=== PATIENT | male | born 1960 | race American Indian/Alaskan Native ===

== ENCOUNTER 2017-03-11 11:12 | Emergency (ER) | payer SELFPAY ==
[2017-03-11 15:20] LABS: Bilirubin,Urine NEG (Negative); Blood,Urine SM (Negative); Color,Urine Yellow (Yellow); Mucus,Urine FEW /HPF; Nitrite,Urine NEG (Negative)
[2017-03-11] MEDS ORDERED: XYLOCAINE 1% MPF 5 mL INFILTRATI ONE (20:05)
[2017-03-11] MEDS ORDERED: ROCEPHIN IM ONE (20:05)
[2017-03-11 20:15] VITALS: BP 150/90
--- NOTE | 2017-03-11 20:58 | Emergency Department Report ---
ED Male HPI - General Chief complaint: Urogenital-Male Stated complaint: PAIN WITH URINATION Time Seen by Provider: 03/11/17 19:41 Source: patient Mode of arrival: Ambulatory Limitations: No Limitations - History of Present Illness MD Complaint: dysuria -: Gradual, days(s) (3) Location: penis Radiation: none Severity: moderate Quality: burning Improves with: none Worsens with: urination other (itching generalized, which responded to Benadryl. ) - Related Data Sexually active: Yes (Had unprotected sex 2 weeks ago with a 6 months partner) Previous Rx's Medication Instructions Recorded Last Taken Type Cephalexin [Keflex] 500 mg PO Q6HR 10 Days capsule 03/11/17 Unknown Rx Doxycycline [Vibramycin CAP] 100 mg PO Q12HR 7 Days capsule 03/11/17 Unknown Rx Allergies Allergy/AdvReac Type Severity Reaction Status Date / Time No Known Allergies Allergy Unverified 03/11/17 14:21 ED Review of Systems ROS: Stated complaint: PAIN WITH URINATION Other details as noted in HPI Constitutional: denies: chills, fever Eyes: denies: eye pain, eye discharge, vision change ENT: denies: ear pain, throat pain Respiratory: denies: cough, shortness of breath, wheezing Cardiovascular: denies: chest pain, palpitations Endocrine: no symptoms reported Gastrointestinal: denies: abdominal pain, nausea, diarrhea Genitourinary: dysuria. denies: urgency, discharge Musculoskeletal: denies: back pain, joint swelling, arthralgia Skin: denies: rash, lesions Neurological: denies: headache, weakness, paresthesias Psychiatric: denies: anxiety, depression Hematological/Lymphatic: denies: easy bleeding, easy bruising ED Past Medical Hx - Past Medical History Previous Medical History?: No - Surgical History Past Surgical History?: No - Social History Smoking Status: Current Every Day Smoker Substance Use Type: Alcohol - Medications Home Medications: Home Medications Medication Instructions Recorded Confirmed Last Taken Type Cephalexin [Keflex] 500 mg PO Q6HR 10 Days capsule 03/11/17 Unknown Rx Doxycycline [Vibramycin CAP] 100 mg PO Q12HR 7 Days capsule 03/11/17 Unknown Rx ED Physical Exam - General Limitations: No Limitations General appearance: alert, in no apparent distress - Head Head exam: Present: atraumatic, normocephalic - Eye Eye exam: Present: normal appearance - ENT ENT exam: Present: mucous membranes moist - Neck Neck exam: Present: normal inspection - Respiratory Respiratory exam: Present: normal lung sounds bilaterally. Absent: respiratory distress - Cardiovascular Cardiovascular Exam: Present: regular rate, normal rhythm. Absent: systolic murmur, diastolic murmur, rubs, gallop - GI/Abdominal GI/Abdominal exam: Present: soft, normal bowel sounds - Rectal Rectal exam: Present: deferred - Extremities Exam Extremities exam: Present: normal inspection - Back Exam Back exam: Present: normal inspection - Neurological Exam Neurological exam: Present: alert, oriented X3 - Psychiatric Psychiatric exam: Present: normal affect, normal mood - Skin Skin exam: Present: warm, dry, intact, normal color. Absent: rash ED Course Vital Signs 03/11/17 03/11/17 14:15 20:14 Temperature 98.7 F Pulse Rate 86 91 H Respiratory 16 18 Rate Blood Pressure 145/100 Blood Pressure 150/90 [Right] O2 Sat by Pulse 100 97 Oximetry Critical care attestation.: If time is entered above; I have spent that time in minutes in the direct care of this critically ill patient, excluding procedure time. ED Disposition Clinical Impression: Possible exposure to STD UTI (urinary tract infection) Qualifiers: Urinary tract infection type: site unspecified Hematuria presence: without hematuria Qualified Code(s): N39.0 - Urinary tract infection, site not specified Disposition: - TO HOME OR SELFCARE Is pt being admited?: No Does the pt Need Aspirin: No Condition: Stable Instructions: Safe Sex (ED) Prescriptions: Cephalexin [Keflex] 500 mg PO Q6HR 10 Days capsule Doxycycline [Vibramycin CAP] 100 mg PO Q12HR 7 Days capsule Referrals: PRIMARY CARE, [Primary Care Provider] - 3-5 Days Time of Disposition: 20:58
== END 2017-03-11 21:15 | disposition home or self-care (01) ==
LOC: ED 11:12
DX: N39.0 Urinary tract infection, site not specified (principal); F17.200 Nicotine dependence, unspecified, uncomplicated
CPT/HCPCS: 81001; 96372; 99283; J0696

== ENCOUNTER 2020-07-20 15:46 | Inpatient (IN) | payer OTHER, SELFPAY ==
--- NOTE | 2020-07-20 19:18 | Event Note ---
ED Screening Note Date of service: 07/20/20 Time: 19:14 ED Screening Note: 59-year-old male patient with prior history of perirectal abscess requiring operative intervention presents emergency department with complaints of progressively worsening rectal pain/swelling/drainage and fecal incontinence for approximately 3 weeks. Patient is not currently on antibiotics. Tachycardic in triage. Although the rectum cannot properly be visualized in triage, foul-smelling purulent drainage is noted to be soaking through the patient's pants and onto the seat. General: Awake, appropriately interactive, no acute distress. Neck: Supple. Full range of motion intact. Cardiovascular: Normal peripheral perfusion. Pulmonary: No respiratory distress. Patient is speaking normally without use of accessory muscles. Skin: No apparent rashes or lesions. Neurological: No facial asymmetry. Speech is clear. Follows commands. Patient is alert and oriented. Musculoskeletal: Moves all four extremities spontaneously with normal range of motion. Psych: Cooperative. Appropriate mood and affect. Initial labs ordered; imaging deferred to additional ED providers following full history and comprehensive physical exam. I have greeted and performed a focused rapid initial assessment of this patient. A comprehensive ED assessment and evaluation of the patient, analysis of all test results, and completion of the medical decision-making process will be conducted by additional ED providers. This initial assessment/diagnostic orders/clinical plan/treatment(s) is/are subject to change based on patients health status, clinical progression and re-assessment. Further treatment and workup at subsequent clinical provider's discretion. Patient/guardian urged not to elope from the ED as their condition may be serious if not clinically assessed and managed.
[2020-07-20 19:44] LABS: Hematocrit 46.4 % (35.5-45.6); Hemoglobin 15.6 gm/dl (11.8-15.2); Mean Corpuscular HGB Conc 34 % (32-34); Mean Corpuscular Volume 90 fl (84-94); Platelet Count 262 K/mm3 (140-440); Red Blood Count 5.16 M/mm3 (3.65-5.03); Red Cell Distribution Width 13.6 % (13.2-15.2)
[2020-07-20 20:03] LABS: Alanine Aminotransferase 15 units/L (7-56); Albumin 3.9 g/dL (3.9-5); BUN/Creatinine Ratio 13; Blood Urea Nitrogen 14 mg/dL (9-20); Calcium 8.8 mg/dL (8.4-10.2); Hemolysis Index 61
[2020-07-20 20:26] LABS: Total Cells Counted 100
[2020-07-20 20:27] LABS: Band Neutrophils # (Manual) 0.9 K/mm3; Platelet Estimate Consistent w Auto; RBC Morphology Normal
[2020-07-20] MEDS ORDERED: metroNIDAZOLE/NS 500 MG/100 ML 500 MG/100 ML BAG IV ONE (21:42)
--- NOTE | 2020-07-20 21:49 | Emergency Department Report ---
- General Chief complaint: Skin/Abscess/Foreign Body Stated complaint: ,LEFT BUTTOCK,BLEEDING Time Seen by Provider: 07/20/20 21:31 Source: patient Mode of arrival: Ambulatory Limitations: No Limitations - History of Present Illness Initial comments: CC: buttock abscess HPI: This is a 59-year-old male with history of hemorrhoids and buttock abscess who presents with left buttock abscess. The swelling began 1 month ago. Pain and swelling worsened over time. He has 9 and 10 achy pain. Pain is worse with sitting down. No radiation of pain. Pain is constant. No history of diabetes. At the age of 15 patient required incision and drainage. Since that time he has not had recurrence of the abscess. MD complaint: abscess/boil -: Gradual, month(s) (1 month) Location: buttocks (Left buttock) Severity: severe Severity scale (0 -10): 9 Quality: aching Consistency: constant Improves with: none Worsens with: other (Seated position) Context: other (Buttock abscess required I&D age 15) Associated symptoms: fever Treatments Prior to Arrival: none - Related Data Previous Rx's Medication Instructions Recorded Last Taken Type DOXYCYCLINE Hyclate [Vibramycin 100 mg PO Q12HR 7 Days capsule 03/11/17 Unknown Rx CAP] cephALEXin [Keflex] 500 mg PO Q6HR 10 Days capsule 03/11/17 Unknown Rx Allergies Allergy/AdvReac Type Severity Reaction Status Date / Time No Known Allergies Allergy Verified 07/21/20 00:04 Abscess Boil HPI - HPI Chief Complaint: Skin/Abscess/Foreign Body Stated Complaint: ,LEFT BUTTOCK,BLEEDING Time Seen by Provider: 07/20/20 21:31 Home Medications: Previous Rx's Medication Instructions Recorded Last Taken Type DOXYCYCLINE Hyclate [Vibramycin 100 mg PO Q12HR 7 Days capsule 03/11/17 Unknown Rx CAP] cephALEXin [Keflex] 500 mg PO Q6HR 10 Days capsule 03/11/17 Unknown Rx Allergies/Adverse Reactions: Allergies Allergy/AdvReac Type Severity Reaction Status Date / Time No Known Allergies Allergy Verified 07/21/20 00:04 ED Review of Systems ROS: Stated complaint: ,LEFT BUTTOCK,BLEEDING Other details as noted in HPI Comment: All other systems reviewed and negative Constitutional: fever. denies: malaise Respiratory: denies: cough, shortness of breath Cardiovascular: denies: chest pain Gastrointestinal: denies: abdominal pain, nausea, vomiting Skin: lesions ED Past Medical Hx - Past Medical History Previous Medical History?: Yes Additional medical history: Hemorrhoids, buttock abscess - Surgical History Past Surgical History?: No - Family History Family history: hypertension - Social History Smoking Status: Current Every Day Smoker Substance Use Type: Alcohol - Medications Home Medications: Home Medications Medication Instructions Recorded Confirmed Last Taken Type DOXYCYCLINE Hyclate [Vibramycin 100 mg PO Q12HR 7 Days capsule 03/11/17 Unknown Rx CAP] cephALEXin [Keflex] 500 mg PO Q6HR 10 Days capsule 03/11/17 Unknown Rx ED Physical Exam - General Limitations: No Limitations General appearance: alert, in no apparent distress, other (Pleasant, nontoxic-appearing, talkative) - Head Head exam: Present: atraumatic, normocephalic - Eye Eye exam: Present: normal appearance - ENT ENT exam: Present: mucous membranes moist - Neck Neck exam: Present: normal inspection, full ROM - Respiratory Respiratory exam: Present: normal lung sounds bilaterally. Absent: respiratory distress, wheezes, rales, rhonchi - Cardiovascular Cardiovascular Exam: Present: normal rhythm, tachycardia. Absent: systolic murmur, diastolic murmur, rubs, gallop - GI/Abdominal GI/Abdominal exam: Present: soft, normal bowel sounds. Absent: distended, tenderness, guarding, rebound - Rectal Rectal exam: Present: deferred - Back Exam Back exam: Present: normal inspection - Neurological Exam Neurological exam: Present: alert, oriented X3 - Psychiatric Psychiatric exam: Present: normal affect, normal mood - Skin Skin exam: Present: rash, other (Left buttock: Induration fluctuance redness palpated observed along the medial portion of the left buttock just adjacent to the anus, no purulence observed) ED Course Vital Signs 07/20/20 07/21/20 16:23 00:15 Temperature 98.7 F Pulse Rate 122 H Respiratory 18 20 Rate Blood Pressure 144/73 [Right] O2 Sat by Pulse 100 Oximetry ED Medical Decision Making - Lab Data Result diagrams: 07/20/20 19:26 07/20/20 19:26 Laboratory Results - last 24 hr 07/20/20 07/20/20 19:26 19:26 WBC 21.9 H RBC 5.16 H Hgb 15.6 H Hct 46.4 H MCV 90 MCH 30 MCHC 34 RDW 13.6 Plt Count 262 Add Manual Diff Complete Total Counted 100 Seg Neuts % (Manual) 84.0 H Band Neutrophils % 4.0 Lymphocytes % (Manual) 8.0 L Monocytes % (Manual) 4.0 Nucleated RBC % Not Reportable Seg Neutrophils # Man 18.4 H Band Neutrophils # 0.9 Lymphocytes # (Manual) 1.8 Abs React Lymphs (Man) 0.0 Monocytes # (Manual) 0.9 H Eosinophils # (Manual) 0.0 Basophils # (Manual) 0.0 Metamyelocytes # 0.0 Myelocytes # 0.0 Promyelocytes # 0.0 Blast Cells # 0.0 WBC Morphology Not Reportable Hypersegmented Neuts Not Reportable Hyposegmented Neuts Not Reportable Hypogranular Neuts Not Reportable Smudge Cells Not Reportable Toxic Granulation Not Reportable Toxic Vacuolation Not Reportable Dohle Bodies Not Reportable Pelger-Huet Anomaly Not Reportable Steve Rods Not Reportable Platelet Estimate Consistent w auto Clumped Platelets Not Reportable Plt Clumps, EDTA Not Reportable Large Platelets Not Reportable Giant Platelets Not Reportable Platelet Satelliting Not Reportable Plt Morphology Comment Not Reportable RBC Morphology Normal Dimorphic RBCs Not Reportable Polychromasia Not Reportable Hypochromasia Not Reportable Poikilocytosis Not Reportable Anisocytosis Not Reportable Microcytosis Not Reportable Macrocytosis Not Reportable Spherocytes Not Reportable Pappenheimer Bodies Not Reportable Sickle Cells Not Reportable Target Cells Not Reportable Tear Drop Cells Not Reportable Ovalocytes Not Reportable Helmet Cells Not Reportable Rueda-[place] Bodies Not Reportable [place] Rings Not Reportable [place] Cells Not Reportable Bite Cells Not Reportable Crenated Cell Not Reportable Elliptocytes Not Reportable Acanthocytes (Spur) Not Reportable Rouleaux Not Reportable Hemoglobin C Crystals Not Reportable Schistocytes Not Reportable Malaria parasites Not Reportable Yared Bodies Not Reportable Hem Pathologist Commnt No Sodium 132 L Potassium 4.1 Chloride 89.5 L Carbon Dioxide 26 Anion Gap 21 BUN 14 Creatinine 1.1 Estimated GFR > 60 BUN/Creatinine Ratio 13 Glucose 107 H Calcium 8.8 Total Bilirubin 1.40 H AST 27 ALT 15 Alkaline Phosphatase 81 Total Protein 7.0 Albumin 3.9 Albumin/Globulin Ratio 1.3 - Radiology Data Radiology results: report reviewed Patient Name: ERICKA HORTON Gender: Male Date of : 1960 Referring Provider: KIM HOFFMAN Organization: [facility] Accession Number: [id number] Requested Date: July 20, 2020 23:15 Report Status: Final Requested Procedure: 1 Procedure Description: CT pelvis w con Modality: CT Findings Reporting MD: Mariel Florez Dictation Time: July 20, 2020 22:53 Keyboard Instrument Tuner: Not available Roll Tension Tester Date: CT pelvis w con INDICATION / CLINICAL INFORMATION: LEFT buttock abscess. TECHNIQUE: Axial CT imaging of pelvis was obtained with IV contrast. Coronal and sagittal reformatted imaging obtained and reviewed. All CT scans at this location are performed using CT dose reduction for ALARA by means of automated exposure control. COMPARISON: None available. FINDINGS: CT pelvis with contrast was obtained. There is extensive inflammatory change throughout the soft tissues of the left medial buttock region adjacent to the rectum. There is large area of inflammatory change measuring approximately 14 x 9 cm. Within this area of inflammatory change, there are multiple fluid collections consistent with abscesses. There are at least 2 abscesses measuring 4-5 cm in diameter. There are smaller similar fluid collections seen in this same area also representing abscesses. Gas is present within the abscesses as well as smaller scattered bubbles of gas throughout the inflamed tissue. The largest abscess tracks anteriorly through the left ischio rectal fossa in the perineum on the left, medial to the left internal obturator muscle and adjacent to the prostate and. This particular abscess measures approximately 5 x 1.5 cm. The remainder of the pelvic CT is unremarkable. GI tract is normal. Prostate gland is of normal size and appearance. Visualized osseous structures are normal. . IMPRESSION: 1. Large area of inflammatory change within the soft tissues of the left medial buttock region. Within the area of inflammatory change there are multiple abscesses. The largest abscess tracks anteriorly through the peritoneum and left ischio rectal fossa and just medial to the left internal obturator muscle. Scattered bubbles of gas are seen throughout the area of inflammatory change. Signer Name: Mariel Florez MD Signed: 07/20/2020 10:53 PM Workstation Name: [id number] - Medical Decision Making Deep extensive perianal buttock abscess: Upon arrival patient received ciprofl oxacin and Levaquin. Patient did have elevated white count without significant fever. He does not appear toxic. Dr. Quevedo recommended NPO status, IV abx and hospitalist admission Dr. Bull will admit Critical care attestation.: If time is entered above; I have spent that time in minutes in the direct care of this critically ill patient, excluding procedure time. ED Disposition Clinical Impression: Left buttock abscess Disposition: OP ADMIT IP TO THIS HOSP Is pt being admited?: Yes Does the pt Need Aspirin: No Condition: Stable
[2020-07-20] MEDS ORDERED: ONDANSETRON 4 MG/2 ML INJ IV ONE (21:50)
[2020-07-20] MEDS ORDERED: MORPHINE 4 MG/1 ML INJ IV ONE (21:50)
--- NOTE | 2020-07-20 23:58 | Cat Scan Report ---
CT pelvis w con INDICATION / CLINICAL INFORMATION: LEFT buttock abscess. TECHNIQUE: Axial CT imaging of pelvis was obtained with IV contrast. Coronal and sagittal reformatted imaging ob tained and reviewed. All CT scans at this location are performed using CT dose reduction for ALARA b y means of automated exposure control. COMPARISON: None available. FINDINGS: CT pelvis with contrast was obtained. There is extensive inflammatory change throughout the soft tissues of the left medial buttock region adjacent to the rectum. There is large area of inflammatory change measuring approximately 14 x 9 cm. Within this area of inflammatory change, there are multiple fluid collections consistent with absces ses. There are at least 2 abscesses measuring 4-5 cm in diameter. There are smaller similar fluid col lections seen in this same area also representing abscesses. Gas is present within the abscesses as w ell as smaller scattered bubbles of gas throughout the inflamed tissue. The largest abscess tracks an teriorly through the left ischio rectal fossa in the perineum on the left, medial to the left interna l obturator muscle and adjacent to the prostate and. This particular abscess measures approximately 5 x 1.5 cm. The remainder of the pelvic CT is unremarkable. GI tract is normal. Prostate gland is of normal size and appearance. Visualized osseous structures are normal. . IMPRESSION: 1. Large area of inflammatory change within the soft tissues of the left medial buttock region. Withi n the area of inflammatory change there are multiple abscesses. The largest abscess tracks anteriorly through the peritoneum and left ischio rectal fossa and just medial to the left internal obturator m uscle. Scattered bubbles of gas are seen throughout the area of inflammatory change. Signer Name: Mariel Florez MD Signed: 07/20/2020 11:53 PM Workstation Name: [id number]
[2020-07-21] MEDS ORDERED: MORPHINE 4 MG/1 ML INJ ONE (00:04)
[2020-07-21] MEDS ORDERED: ONDANSETRON 4 MG/2 ML INJ ONE ×2 (00:04→14:16)
--- NOTE | 2020-07-21 02:22 | History and Physical Report ---
History of Present Illness Date of examination: 07/21/20 Date of admission: 07/21/20 01:29 Chief complaint: rectal pain History of present illness: HPI: This is a 59-year-old male with history of hemorrhoids and buttock abscess who presents with left buttock abscess. The swelling began 1 month ago. Pain and swelling worsened over time. He has 9 and 10 achy pain. Pain is worse with sitting down. No radiation of pain. Pain is constant. ED work-up showed sodium 132, potassium 4.1, creatinine 1.1, serum glucose 107, WBC 21.9, hemoglobin 15.4, platelets 326. CT of the pelvis showed a large area of inflammation within the soft tissue of the left medial buttocks region and also showed a large abscess tracks anteriorly through the perineum and left ischio rectal fossa. There is also scattered bubbles of gas seen throughout the area of the inflammatory change. Patient seen in the ED at bedside patient reports rectal pain 6/10 on a pain scale of 0-10. General surgeon consulted. Patient is n.p.o. I reviewed the lab medication record and vital signs. WBC elevated patient started on IV antibiotics. blood culture ordered. Past History Past Surgical History: No surgical history Social history: smoking Family history: no significant family history Medications and Allergies Allergies Allergy/AdvReac Type Severity Reaction Status Date / Time No Known Allergies Allergy Verified 07/21/20 00:04 Home Medications Medication Instructions Recorded Confirmed Last Taken Type DOXYCYCLINE Hyclate [Vibramycin 100 mg PO Q12HR 7 Days capsule 03/11/17 Unknown Rx CAP] cephALEXin [Keflex] 500 mg PO Q6HR 10 Days capsule 03/11/17 Unknown Rx Review of Systems Constitutional: malaise Ears, nose, mouth and throat: no epistaxis, no bleeding gums Cardiovascular: no dyspnea on exertion Respiratory: no congestion, no wheezing Gastrointestinal: no melena Genitourinary Male: other (rectal abscess/pain) Exam - Constitutional Vitals: Temp Pulse Resp BP Pulse Ox 98.7 F 122 H 20 144/73 99 07/20/20 16:23 07/20/20 16:23 07/21/20 01:53 07/20/20 16:23 07/21/20 01:53 General appearance: Present: mild distress, obese - EENT Eyes: Present: PERRL ENT: hearing intact, clear oral mucosa - Neck Neck: Present: supple, normal ROM - Respiratory Respiratory effort: normal Respiratory: bilateral: CTA - Cardiovascular Heart Sounds: Present: S1 & S2. Absent: rub, click - Extremities Extremities: pulses symmetrical, No edema Peripheral Pulses: within normal limits - Abdominal General gastrointestinal: Present: soft, non-tender, non-distended, normal bowel sounds Male genitourinary: Present: normal - Integumentary Integumentary: Present: clear, warm, dry - Musculoskeletal Musculoskeletal: gait normal, strength equal bilaterally - Psychiatric Psychiatric: appropriate mood/affect, intact judgment & insight, cooperative - Neurologic Neurologic: CNII-XII intact, moves all extremities - Allied Health Allied health notes reviewed: nursing Results - Labs CBC & Chem 7: 07/20/20 19:26 07/20/20 19:26 Labs: Abnormal lab results 07/20/20 07/20/20 Range/Units 19:26 19:26 WBC 21.9 H (4.5-11.0) K/mm3 RBC 5.16 H (3.65-5.03) M/mm3 Hgb 15.6 H (11.8-15.2) gm/dl Hct 46.4 H (35.5-45.6) % Seg Neuts % (Manual) 84.0 H (40.0-70.0) % Lymphocytes % (Manual) 8.0 L (13.4-35.0) % Seg Neutrophils # Man 18.4 H (1.8-7.7) K/mm3 Monocytes # (Manual) 0.9 H (0.0-0.8) K/mm3 Sodium 132 L (137-145) mmol/L Chloride 89.5 L (98-107) mmol/L Glucose 107 H (75-100) mg/dL Total Bilirubin 1.40 H (0.1-1.2) mg/dL Assessment and Plan - Patient Problems (1) Left buttock abscess Current Visit: Yes Status: Acute Plan to address problem: General surgeon consulted Patient is n.p.o. Continue IV antibiotic. 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 Blood culture follow-up with results (4) Full code status Current Visit: Yes Status: Acute Plan to address problem: Patient is full code (5) DVT prophylaxis Current Visit: Yes Status: Acute Plan to address problem: SCD. Will hold anticoagulant for now due to possible surgery.
[2020-07-21] MEDS ORDERED: SENNOSIDES 8.6 MG TAB PO PRN (03:10)
[2020-07-21] MEDS ORDERED: MAGNESIUM HYDROXIDE (MOM) ORAL LIQD UDC PO PRN (03:10)
[2020-07-21] MEDS ORDERED: ACETAMINOPHEN 325 MG TAB PO PRN (03:10)
[2020-07-21] MEDS ORDERED: ONDANSETRON 4 MG/2 ML INJ IV PRN ×2 (03:10→16:30)
[2020-07-21] MEDS ORDERED: ALUM-MAG HYDROXIDE-SIMETHICONE 200-200-20MG/5ML ORAL LIQD 30 ML PO PRN (03:10)
[2020-07-21] MEDS: metroNIDAZOLE/NS 500 MG/100 ML 500 MG/100 ML BAG IV SCH ×3 (08:11→23:19)
--- NOTE | 2020-07-21 10:06 | Progress Note ---
Assessment and Plan Assessment and plan: -- Left buttock abscess Current Visit: Yes Status: Acute General surgeon consulted Patient is n.p.o status for possible I&D Continue IV antibiotic Levaquin and Flagyl --Sepsis secondary to left buttock abscess ; Current Visit: Yes Status: Acute Leukocytosis, tachycardia, Left buttock abscess Continue n.p.o., IV fluids, IV antibiotics Follow surgery evaluation recommendations Possible I&D --Ongoing tobacco abuse Current Visit: Yes Status: Acute . Smoking cessation counseling Nicotine patch as needed --Leukocytosis Current Visit: Yes Status: Acute Secondary to rectal abscess Continue antibiotic therapy Monitor WBC. Blood culture follow-up with results --Obesity; BMI 34.9 Current Visit: Yes Status: Acute Advised the patient diet modification Exercise as tolerated and weight reduction When medically stable --Full code status Current Visit: Yes Status: Acute Patient is full code --DVT prophylaxis Current Visit: Yes Status: Acute SCD. While resting Increase ambulation upon discharge Hold anticoagulants pending procedure We will closely monitor the patient and adjust management as needed Plan of care reviewed with the patient and his nurse Consults and recommendations noted and appreciated. Extended and advance care, total time spent 35 minutes History Interval history: I have seen and examined the patient at the bedside this morning Patient's chart and medications reviewed Patient was admitted with buttock rectal abscess/ On antibiotics n.p.o. status pending surgical evaluation Patient complains of some pain in the buttocks Vital signs noted Hospitalist Physical - Constitutional Vitals: Temp Pulse Resp BP Pulse Ox 98.6 F 112 H 20 134/69 98 07/21/20 02:34 07/21/20 02:34 07/21/20 02:34 07/21/20 02:34 07/21/20 02:34 General appearance: Present: mild distress, well-nourished, obese - EENT Eyes: Present: PERRL, EOM intact - Neck Neck: Present: supple, normal ROM - Respiratory Respiratory effort: normal Respiratory: bilateral: diminished, negative: rales, rhonchi, wheezing - Cardiovascular Rhythm: regular Heart Sounds: Present: S1 & S2 - Extremities Extremities: no ischemia, No edema - Abdominal General gastrointestinal: soft, non-tender, non-distended, normal bowel sounds - Integumentary Integumentary: Present: clear, warm - Psychiatric Psychiatric: appropriate mood/affect, cooperative - Neurologic Neurologic: CNII-XII intact, moves all extremities Results - Labs CBC & Chem 7: 07/20/20 19:26 07/20/20 19:26 Labs: Laboratory Last Values WBC 21.9 K/mm3 (4.5-11.0) H 07/20/20 19:26 RBC 5.16 M/mm3 (3.65-5.03) H 07/20/20 19:26 Hgb 15.6 gm/dl (11.8-15.2) H 07/20/20 19:26 Hct 46.4 % (35.5-45.6) H 07/20/20 19:26 MCV 90 fl (84-94) 07/20/20 19: MCH 30 pg (28-32) 07/20/20 19: MCHC 34 % (32-34) 07/20/20 19: RDW 13.6 % (13.2-15.2) 07/20/20 19: Plt Count 262 K/mm3 (140-440) 07/20/20 19:26 Add Manual Diff Complete 07/20/20 19:26 Total Counted 100 07/20/20 19:26 Seg Neuts % (Manual) 84.0 % (40.0-70.0) H 07/20/20 19: Band Neutrophils % 4.0 % 07/20/20 19:26 Lymphocytes % (Manual) 8.0 % (13.4-35.0) L 07/20/20 19:26 Monocytes % (Manual) 4.0 % (0.0-7.3) 07/20/20 19:26 Nucleated RBC % Not Reportable 07/20/20 19:26 Seg Neutrophils # Man 18.4 K/mm3 (1.8-7.7) H 07/20/20 19:26 Band Neutrophils # 0.9 K/mm3 07/20/20 19:26 Lymphocytes # (Manual) 1.8 K/mm3 (1.2-5.4) 07/20/20 19:26 Abs React Lymphs (Man) 0.0 K/mm3 07/20/20 19:26 Monocytes # (Manual) 0.9 K/mm3 (0.0-0.8) H 07/20/20 19:26 Eosinophils # (Manual) 0.0 K/mm3 (0.0-0.4) 07/20/20 19:26 Basophils # (Manual) 0.0 K/mm3 (0.0-0.1) 07/20/20 19:26 Metamyelocytes # 0.0 K/mm3 07/20/20 19:26 Myelocytes # 0.0 K/mm3 07/20/20 19:26 Promyelocytes # 0.0 K/mm3 07/20/20 19:26 Blast Cells # 0.0 K/mm3 07/20/20 19:26 WBC Morphology Not Reportable 07/20/20 19:26 Hypersegmented Neuts Not Reportable 07/20/20 19:26 Hyposegmented Neuts Not Reportable 07/20/20 19:26 Hypogranular Neuts Not Reportable 07/20/20 19:26 Smudge Cells Not Reportable 07/20/20 19:26 Toxic Granulation Not Reportable 07/20/20 19:26 Toxic Vacuolation Not Reportable 07/20/20 19:26 Dohle Bodies Not Reportable 07/20/20 19:26 Pelger-Huet Anomaly Not Reportable 07/20/20 19:26 Steve Rods Not Reportable 07/20/20 19:26 Platelet Estimate Consistent w auto 07/20/20 19:26 Clumped Platelets Not Reportable 07/20/20 19:26 Plt Clumps, EDTA Not Reportable 07/20/20 19:26 Large Platelets Not Reportable 07/20/20 19:26 Giant Platelets Not Reportable 07/20/20 19:26 Platelet Satelliting Not Reportable 07/20/20 19:26 Plt Morphology Comment Not Reportable 07/20/20 19:26 RBC Morphology Normal 07/20/20 19:26 Dimorphic RBCs Not Reportable 07/20/20 19:26 Polychromasia Not Reportable 07/20/20 19:26 Hypochromasia Not Reportable 07/20/20 19:26 Poikilocytosis Not Reportable 07/20/20 19:26 Anisocytosis Not Reportable 07/20/20 19:26 Microcytosis Not Reportable 07/20/20 19:26 Macrocytosis Not Reportable 07/20/20 19:26 Spherocytes Not Reportable 07/20/20 19:26 Pappenheimer Bodies Not Reportable 07/20/20 19:26 Sickle Cells Not Reportable 07/20/20 19:26 Target Cells Not Reportable 07/20/20 19:26 Tear Drop Cells Not Reportable 07/20/20 19:26 Ovalocytes Not Reportable 07/20/20 19:26 Helmet Cells Not Reportable 07/20/20 19:26 Rueda-Holcomb Bodies Not Reportable 07/20/20 19:26 [place] Rings Not Reportable 07/20/20 19:26 Roscoe Cells Not Reportable 07/20/20 19:26 Bite Cells Not Reportable 07/20/20 19:26 Crenated Cell Not Reportable 07/20/20 19:26 Elliptocytes Not Reportable 07/20/20 19:26 Acanthocytes (Spur) Not Reportable 07/20/20 19:26 Rouleaux Not Reportable 07/20/20 19:26 Hemoglobin C Crystals Not Reportable 07/20/20 19:26 Schistocytes Not Reportable 07/20/20 19:26 Malaria parasites Not Reportable 07/20/20 19:26 Yared Bodies Not Reportable 07/20/20 19:26 Hem Pathologist Commnt No 07/20/20 19:26 Sodium 132 mmol/L (137-145) L 07/20/20 19:26 Potassium 4.1 mmol/L (3.6-5.0) 07/20/20 19:26 Chloride 89.5 mmol/L (98-107) L 07/20/20 19:26 Carbon Dioxide 26 mmol/L (22-30) 07/20/20 19:26 Anion Gap 21 mmol/L 07/20/20 19:26 BUN 14 mg/dL (9-20) 07/20/20 19:26 Creatinine 1.1 mg/dL (0.8-1.3) 07/20/20 19:26 Estimated GFR > 60 ml/min 07/20/20 19:26 BUN/Creatinine Ratio 13 % 07/20/20 19:26 Glucose 107 mg/dL (75-100) H 07/20/20 19:26 Hemoglobin A1c 5.5 % (4-6) 07/21/20 07:52 Calcium 8.8 mg/dL (8.4-10.2) 07/20/20 19:26 Total Bilirubin 1.40 mg/dL (0.1-1.2) H 07/20/20 19:26 AST 27 units/L (5-40) 07/20/20 19:26 ALT 15 units/L (7-56) 07/20/20 19:26 Alkaline Phosphatase 81 units/L (35-129) 07/20/20 19:26 Total Protein 7.0 g/dL (6.3-8.2) 07/20/20 19:26 Albumin 3.9 g/dL (3.9-5) 07/20/20 19:26 Albumin/Globulin Ratio 1.3 % 07/20/20 19:26 Microbiology: Microbiology 07/20/20 20:57 Peripheral/Venous Blood Culture - Preliminary Culture in Progress 07/20/20 20:57 Peripheral/Venous Blood Culture - Preliminary Culture in Progress Chavez/IV: Voiding Method Toilet Active Medications - Current Medications Current Medications: Generic Name Dose Route Start Last Admin Trade Name Freq PRN Reason Stop Dose Admin Acetaminophen 650 mg 07/21/20 03:10 Acetaminophen 325 Mg Tab PO Q4H PRN Pain MILD(1-3)/Fever >100.5/REYEZ Al Hydrox/Mg Hydrox/Simethicone 30 ml 07/21/20 03:10 Alum-Mag Hydroxide-Simethicone [phone]/5ml Oral Liqd 30 Ml PO Q4H PRN Indigestion Hydralazine HCl 5 mg 07/21/20 07:00 Hydralazine 20 Mg/1 Ml Inj IV Q4HR PRN Hypertension Levofloxacin/Dextrose 750 mg in 150 mls @ 100 mls/hr 07/21/20 22:00 Levaquin 750mg/150ml IV Q24H EDITH Protocol Metronidazole 500 mg in 100 mls @ 100 mls/hr 07/21/20 08:00 07/21/20 08:11 Flagyl 500 Mg/100 Ml IV 100 mls/hr Q8H EDITH Administration Protocol Magnesium Hydroxide 30 ml 07/21/20 03:10 Magnesium Hydroxide (Mom) Oral Liqd Udc PO Q4H PRN Constipation Ondansetron HCl 4 mg 07/21/20 03:10 Ondansetron 4 Mg/2 Ml Inj IV Q8H PRN Nausea And Vomiting Senna 8.6 mg 07/21/20 03:10 Sennosides 8.6 Mg Tab PO Q12HR PRN Constipation Sodium Chloride 10 ml 07/21/20 03:10 Sodium Chloride 0.9% 10 Ml Flush Syringe IV PRN PRN LINE FLUSH
--- NOTE | 2020-07-21 12:09 | Consultation ---
History of Present Illness - Reason for Consult Consult date: 07/21/20 - History of Present Illness 59-year-old man past medical history hemorrhoids, buttock abscess presents with new occurrence of left buttock abscess. He symptoms started approximately 1 month prior to admission, however they have worsened over time. Afebrile with a white count of 22. Blood cultures pending. Imaging personally reviewed: Pelvis CT: Multiple abscesses in the left medial buttock region. 1 of which tracks through the peritoneum and left ischio rectal fossa Review of Systems: Bold if positive, otherwise negative General: fevers, chills, rigors HEENT: visual disturbance, diplopia, eye pain Respiratory: cough, sputum, hemoptysis, shortness of breath Cardiovascular: chest pain, syncope Gastrointestinal: nausea, vomiting, diarrhea, abdominal pain Genitourinary: dysuria, hematuria, flank pain Musculoskeletal: neck pain, back pain, joint pain, edema Neurologic: headaches, seizures Hematologic: easy bruising or bleeding Endocrine: night sweats, acute weight loss Skin: rash, jaundice, redness Psychiatric: suicidal, homicidal ideation Past History Past Surgical History: No surgical history Social history: smoking Family history: no significant family history Medications and Allergies Allergies Allergy/AdvReac Type Severity Reaction Status Date / Time No Known Allergies Allergy Verified 07/21/20 00:04 Home Medications Medication Instructions Recorded Confirmed Last Taken Type No Known Home Medications [No 07/21/20 07/21/20 Unknown History Reported Home Medications] Active Meds: Active Medications Acetaminophen (Acetaminophen 325 Mg Tab) 650 mg PO Q4H PRN PRN Reason: Pain MILD(1-3)/Fever >100.5/REYEZ Al Hydrox/Mg Hydrox/Simethicone (Alum-Mag Hydroxide-Simethicone [phone]/5ml Oral Liqd 30 Ml) 30 ml PO Q4H PRN PRN Reason: Indigestion Hydralazine HCl (Hydralazine 20 Mg/1 Ml Inj) 5 mg IV Q4HR PRN PRN Reason: Hypertension Levofloxacin/Dextrose (Levaquin 750mg/150ml) 750 mg in 150 mls @ 100 mls/hr IV Q24H EDITH; Protocol Metronidazole (Flagyl 500 Mg/100 Ml) 500 mg in 100 mls @ 100 mls/hr IV Q8H EDITH; Protocol Last Admin: 07/21/20 08:11 Dose: 100 mls/hr Documented by: Magnesium Hydroxide (Magnesium Hydroxide (Mom) Oral Liqd Udc) 30 ml PO Q4H PRN PRN Reason: Constipation Ondansetron HCl (Ondansetron 4 Mg/2 Ml Inj) 4 mg IV Q8H PRN PRN Reason: Nausea And Vomiting Senna (Sennosides 8.6 Mg Tab) 8.6 mg PO Q12HR PRN PRN Reason: Constipation Sodium Chloride (Sodium Chloride 0.9% 10 Ml Flush Syringe) 10 ml IV PRN PRN PRN Reason: LINE FLUSH Physical Examination - Physical Exam Narrative exam: Physical Exam: Constitutional: Alert, cooperative. No acute distress Head, Ears, Nose: Normocephalic, atraumatic. External ears, nose normal Eyes: Conjunctivae/corneas clear. No icterus. No ptosis. Neck: Supple, no meningeal signs Oral: dentition fair, no thrush Cardiovascular: S1, S2 normal. Respiratory: Good air entry, clear to auscultation bilaterally GI: Soft, non-tender; bowel sounds normal. No peritoneal signs. Musculoskeletal: left buttock pain, swelling, redness Skin: No rash or abscess Hem/Lymphatic: No palpable cervical or supraclavicular nodes. No lymphangitis Psych: Mood ok. Affect normal Neurological: Awake, alert, oriented. No gross abnormality - Constitutional Vitals: Vital Signs Temp Pulse Resp BP Pulse Ox 98.6 F 112 H 20 134/69 98 07/21/20 02:34 07/21/20 02:34 07/21/20 02:34 07/21/20 02:34 07/21/20 02:34 Temperature -Last 24 Hours Temperature 98.6 F Temperature 98.7 F Results - Labs CBC & Chem 7: 07/20/20 19:26 07/20/20 19:26 Labs: Abnormal lab results 07/20/20 07/20/20 Range/Units 19:26 19:26 WBC 21.9 H (4.5-11.0) K/mm3 RBC 5.16 H (3.65-5.03) M/mm3 Hgb 15.6 H (11.8-15.2) gm/dl Hct 46.4 H (35.5-45.6) % Seg Neuts % (Manual) 84.0 H (40.0-70.0) % Lymphocytes % (Manual) 8.0 L (13.4-35.0) % Seg Neutrophils # Man 18.4 H (1.8-7.7) K/mm3 Monocytes # (Manual) 0.9 H (0.0-0.8) K/mm3 Sodium 132 L (137-145) mmol/L Chloride 89.5 L (98-107) mmol/L Glucose 107 H (75-100) mg/dL Total Bilirubin 1.40 H (0.1-1.2) mg/dL Assessment and Plan Cultures: Blood culture no growth so far. A/P: 59-year-old man past medical history hemorrhoids, buttock abscess presents with extensive buttock abscess #L buttock abscess: with deep tracking, will likely need surgical I&D #Elevated bilirubin: consider RUQ USS #Obesity Recs: -Stopped Levaquin -Start ceftriaxone/Flagyl -Obtain cultures from debridement. -RUQ USS Thank you for the consult, we will continue to follow. MD [facility] ([facility] O: [phone] F: [phone]
--- NOTE | 2020-07-21 12:43 | Consultation ---
History of Present Illness Consult date: 07/21/20 Chief complaint: buttock pain - History of present illness History of present illness: 59 yo M with hx of hemorrhoids who presented to ER with worsening swelling and pain of the left buttock that started 3-4 weeks ago. Patient states it started off as swelling and then he started noticing drainage of pus and feces from the area. He is unsure if the drainage was from the rectum. He states he has never had anything like this before. Pain is achy, 9-10 in severity. Pain medications helps with the pain. He admits to subjective fevers. Past History Past Medical History: No medical history Past Surgical History: No surgical history Social history: smoking, alcohol abuse (3-4 beers a month) Family history: no significant family history Medications and Allergies Allergies Allergy/AdvReac Type Severity Reaction Status Date / Time No Known Allergies Allergy Verified 07/21/20 00:04 Home Medications Medication Instructions Recorded Confirmed Last Taken Type No Known Home Medications [No 07/21/20 07/21/20 Unknown History Reported Home Medications] Active Meds: Active Medications Acetaminophen (Acetaminophen 325 Mg Tab) 650 mg PO Q4H PRN PRN Reason: Pain MILD(1-3)/Fever >100.5/REYEZ Al Hydrox/Mg Hydrox/Simethicone (Alum-Mag Hydroxide-Simethicone [phone]/5ml Oral Liqd 30 Ml) 30 ml PO Q4H PRN PRN Reason: Indigestion Hydralazine HCl (Hydralazine 20 Mg/1 Ml Inj) 5 mg IV Q4HR PRN PRN Reason: Hypertension Metronidazole (Flagyl 500 Mg/100 Ml) 500 mg in 100 mls @ 100 mls/hr IV Q8H EDITH; Protocol Last Admin: 07/21/20 08:11 Dose: 100 mls/hr Documented by: Ceftriaxone Sodium (Rocephin/Ns 2 Gm/100 Ml) 2 gm in 100 mls @ 200 mls/hr IV Q24HR EDITH; Protocol Magnesium Hydroxide (Magnesium Hydroxide (Mom) Oral Liqd Udc) 30 ml PO Q4H PRN PRN Reason: Constipation Ondansetron HCl (Ondansetron 4 Mg/2 Ml Inj) 4 mg IV Q8H PRN PRN Reason: Nausea And Vomiting Senna (Sennosides 8.6 Mg Tab) 8.6 mg PO Q12HR PRN PRN Reason: Constipation Sodium Chloride (Sodium Chloride 0.9% 10 Ml Flush Syringe) 10 ml IV PRN PRN PRN Reason: LINE FLUSH Review of Systems All systems: negative (10 point ROS performed and negative except for that listed in HPI) Exam Vital Signs Temp Pulse Resp BP Pulse Ox 98.7 F 122 H 18 144/73 100 07/20/20 16:23 07/20/20 16:23 07/20/20 16:23 07/20/20 16:23 07/20/20 16:23 Narrative exam: Gen.: Awake, alert, oriented x3. No apparent distress ENT: Trachea midline. No lymphadenopathy. No scleral icterus or conjunctival pallor CV: S1, S2 present Respiratory: No audible wheezes Extremities: No clubbing, cyanosis, edema Gluteal: Large indurated, fluctuance, erythematous left inner buttock. NO drainage or wounds. Results - Labs 07/20/20 19:26 07/20/20 19:26 Abnormal lab results 07/20/20 07/20/20 Range/Units 19:26 19:26 WBC 21.9 H (4.5-11.0) K/mm3 RBC 5.16 H (3.65-5.03) M/mm3 Hgb 15.6 H (11.8-15.2) gm/dl Hct 46.4 H (35.5-45.6) % Seg Neuts % (Manual) 84.0 H (40.0-70.0) % Lymphocytes % (Manual) 8.0 L (13.4-35.0) % Seg Neutrophils # Man 18.4 H (1.8-7.7) K/mm3 Monocytes # (Manual) 0.9 H (0.0-0.8) K/mm3 Sodium 132 L (137-145) mmol/L Chloride 89.5 L (98-107) mmol/L Glucose 107 H (75-100) mg/dL Total Bilirubin 1.40 H (0.1-1.2) mg/dL Diabetes panel 07/20/20 07/21/20 Range/Units 19:26 07:52 Sodium 132 L (137-145) mmol/L Potassium 4.1 (3.6-5.0) mmol/L Chloride 89.5 L (98-107) mmol/L Carbon Dioxide 26 (22-30) mmol/L BUN 14 (9-20) mg/dL Creatinine 1.1 (0.8-1.3) mg/dL Glucose 107 H (75-100) mg/dL Hemoglobin A1c 5.5 (4-6) % Calcium 8.8 (8.4-10.2) mg/dL AST 27 (5-40) units/L ALT 15 (7-56) units/L Alkaline Phosphatase 81 (35-129) units/L Total Protein 7.0 (6.3-8.2) g/dL Albumin 3.9 (3.9-5) g/dL Calcium panel 07/20/20 Range/Units 19:26 Calcium 8.8 (8.4-10.2) mg/dL Albumin 3.9 (3.9-5) g/dL Pituitary panel 07/20/20 Range/Units 19:26 Sodium 132 L (137-145) mmol/L Potassium 4.1 (3.6-5.0) mmol/L Chloride 89.5 L (98-107) mmol/L Carbon Dioxide 26 (22-30) mmol/L BUN 14 (9-20) mg/dL Creatinine 1.1 (0.8-1.3) mg/dL Glucose 107 H (75-100) mg/dL Calcium 8.8 (8.4-10.2) mg/dL Adrenal panel 07/20/20 Range/Units 19:26 Sodium 132 L (137-145) mmol/L Potassium 4.1 (3.6-5.0) mmol/L Chloride 89.5 L (98-107) mmol/L Carbon Dioxide 26 (22-30) mmol/L BUN 14 (9-20) mg/dL Creatinine 1.1 (0.8-1.3) mg/dL Glucose 107 H (75-100) mg/dL Calcium 8.8 (8.4-10.2) mg/dL Total Bilirubin 1.40 H (0.1-1.2) mg/dL AST 27 (5-40) units/L ALT 15 (7-56) units/L Alkaline Phosphatase 81 (35-129) units/L Total Protein 7.0 (6.3-8.2) g/dL Albumin 3.9 (3.9-5) g/dL - Imaging CT scan - abdomen: report reviewed, image reviewed CT scan - pelvis: report reviewed, image reviewed Assessment and Plan 59 yo M with extensive perirectal/gluteal abscess Plan: 1. NPO 2. IVF 3. prn pain control 4. IV abx 5. Recommend I&D of perirectal abscess. All risks, benefits, alternatives to surgery discussed and questions answered. Consent obtained. Will proceed to OR today. 6. Cultures will be obtained intraop Thank you, please call with questions.
[2020-07-21] MEDS: cefTRIAXone/NS 2 GM/100 ML 2 GM/100 ML BAG IV SCH (12:55)
[2020-07-21] MEDS ORDERED: KETOROLAC 30 MG/1 ML INJ ONE (14:16)
[2020-07-21] MEDS ORDERED: LIDOCAINE MPF (2%) 20 MG/1 ML VIAL 5 ML ONE (14:16)
[2020-07-21] MEDS ORDERED: dexAMETHasone 20 MG/5 ML VIAL ONE (14:16)
[2020-07-21] MEDS ORDERED: ROCURONIUM 50 MG/5 ML INJ IV ONE (14:16)
[2020-07-21] MEDS ORDERED: propofoL 200 MG/20 ML VIAL IV ONE ×2 (14:17→16:42)
[2020-07-21] MEDS ORDERED: fentaNYL 100 MCG/2 ML INJ ONE (14:17)
[2020-07-21] MEDS ORDERED: GLYCOPYRROLATE 0.4 MG/2 ML INJ ONE (14:18)
[2020-07-21] MEDS ORDERED: NEOSTIGMINE 10MG/10 ML INJ MDV ONE (14:18)
[2020-07-21] MEDS ORDERED: MORPHINE 4 MG/1 ML INJ IV PRN (14:21)
[2020-07-21] MEDS ORDERED: oxyCODONE /ACETAMINOPHEN 5-325MG TAB PO PRN (14:21)
[2020-07-21] MEDS: D5W/0.9% NACL 1,000 ML IV SCH ×2 (14:24→23:12)
--- NOTE | 2020-07-21 14:57 | Anesthesia Consultation ---
Anesthesia Consult and Med Hx Date of service: 07/21/20 - Airway Anesthetic Teeth Evaluation: Good ROM Head & Neck: Adequate Mental/Hyoid Distance: Adequate Mallampati Class: Class III Intubation Access Assessment: Possibly Difficult - Pre-Operative Health Status ASA Pre-Surgery Classification: ASA2 Proposed Anesthetic Plan: General, MAC - Pulmonary Hx Smoking: Yes (1 pack/day x 30 years) Hx Asthma: No COPD: No Hx Pneumonia: No Hx Sleep Apnea: No (snoring) - Central Nervous System Hx Back Pain: Yes (arthritis) - Endocrine Hx End Stage Renal Disease: No - Other Systems Hx Obesity: Yes (BMI 34.5)
--- NOTE | 2020-07-21 14:58 | Anesthesia Day of Surgery ---
Anesthesia Day of Surgery - Day of Surgery Patient Examined: Yes Patient H&P Reviewed: Yes Patient is NPO: Yes
[2020-07-21] MEDS: MORPHINE 2 MG/1 ML INJ IV PRN (15:20)
--- NOTE | 2020-07-21 15:35 | Ultrasound Report ---
ULTRASOUND ABDOMEN, LIMITED INDICATION / CLINICAL INFORMATION: Isolated elevated bilirubin. COMPARISON: None available. FINDINGS: Technically limited/difficult exam due to patient positioning. PANCREAS: Not visualized. AORTA: The mid and distal aorta are not visualized. The proximal abdominal aorta shows no significant abnormality. IVC: No significant abnormality. LIVER: The liver is enlarged measuring 19.2 cm .No focal hepatic lesion identified. Normal hepatopeda l blood flow within the main portal vein. GALLBLADDER: No significant abnormality. BILE DUCTS: No significant abnormality. Common bile duct measures 3 mm. RIGHT KIDNEY: The right kidney measures 11.4 cm. No significant abnormality. FREE FLUID: None. ADDITIONAL FINDINGS: None. IMPRESSION: 1. Technically limited exam due to patient positioning. The patient requested the exam be stopped due to significant pain. 2. Hepatomegaly. No focal hepatic lesion is identified. Scribed by: Siri Ko RDMS, RVT Scribed: 07/21/2020 2:29 PM Signer Name: Dagoberto Pierre MD Signed: 07/21/2020 3:31 PM Workstation Name: [employer]
[2020-07-21] MEDS ORDERED: KETAMINE/STERILE WATER 50 MG/ML SYRINGE ONE (16:10)
[2020-07-21] MEDS ORDERED: BUPIVACAINE/PF (0.5%) 5 MG/1 ML 30 ML VIAL INFILTRATI ONE ×2 (16:18→16:59)
[2020-07-21] MEDS ORDERED: LIDOCAINE (1%) 10 MG/1 ML VIAL 20 ML MDV ONE (16:18)
[2020-07-21] MEDS ORDERED: HYDROmorphone 1 MG/1 ML INJ IV PRN (16:30)
[2020-07-21] MEDS ORDERED: SODIUM HYPOCHLORITE, DAKIN'S 1/2 STRENGTH (0.25%) 473 ML TOPICAL SOLN ONE (16:47)
[2020-07-21] MEDS ORDERED: LIDOCAINE (1%) 10 MG/1 ML VIAL 20 ML MDV INFILTRATI ONE (16:59)
[2020-07-21] MEDS ORDERED: SODIUM CHLORIDE 0.9% IRR 1,500 ML BOTTLE IR ONE (17:00)
--- NOTE | 2020-07-21 17:23 | Post Operative Note ---
Pre-op diagnosis: perirectal abscess Post-op diagnosis: other (perirectal abscess with necrotizing soft tissue infection) Findings: Wound measures: 7cmx 1cmx 9cm with undermining from 5-12o clock The abscess cavity is approximately 25 cm and tracks along the rectum and perineum Procedure: incision, drainage, excisional debridement of left perirectal abscess and necrotizing soft tissue infection Anesthesia: MAC, local Surgeon: LIZBETH SINGH Estimated blood loss: 50-100ml Pathology: list (cultures of wound) Specimen disposition: to lab Condition: stable Disposition: PACU
--- NOTE | 2020-07-21 18:03 | Post Anesthesia Evaluation ---
- Post Anesthesia Evaluation Patient Participated: Yes Airway Patent: Yes Stable Respiratory Function: Yes Nausea/Vomiting: No Temp > 96.8F: Yes Pain Manageable: Yes Adequeate Hydration: Yes Anesthesia Complications: No
--- NOTE | 2020-07-21 18:29 | Operative Report ---
Operative Report Operative Report: Date: 07/21/20 17:22 Initialization Date: 07/21/20 17:22 Pre-op diagnosis: perirectal abscess Post-op diagnosis: other (perirectal abscess with necrotizing soft tissue infection) Findings: Wound measures: 7cmx 1cmx 9cm with undermining from 5-12o clock The abscess cavity is approximately 25 cm and tracks along the rectum and perineum Procedure: incision, drainage, excisional debridement of left perirectal abscess and necrotizing soft tissue infection Anesthesia: MAC, local Surgeon: LIZBETH SINGH Estimated blood loss: 50-100ml Pathology: list (cultures of wound) Specimen disposition: to lab Condition: stable Disposition: PACU HPI and indication: 59 yo M who presented to ER with c/o left gluteal and perirectal pain x 3-4 weeks. The patient was found to have a large, extensive perirectal/L gluteal abscess with sepsis. It was recommended that patient undergo incision and drainage in the OR. Procedure indication, risks, benefits, and alternatives discussed with patient and questions answered. Consent obtained. Procedure in detail: Patient was identified in preoperative area and brought to operating room. He was placed on the OR table in prone position with all areas padded appropriately. There was severe induration, erythema, and fluctuance involving left buttock. The right buttock was retracted using tape. The left buttock and perirectal area was prepped and draped in sterile fashion. There was a small opening in the midline gluteal cleft approximately 3 cm superior to the rectum which was draining pururlent, foul smelling fluid. This opening was probed and enlarged with hemostat. Using a 11 blade the abscess cavity was unroofed by incising the skin from the opening in the gluteal cleft and carrying this to the buttock. The incision measured approximately 7 cm. There was immediate drainage of brown colored, very foul smelling fluid. The cavity was probed and many loculations broken up bluntly. Several tracts were unroofed. There was an tract extending along the rectum, superiorly and inferiorly towards the perineum. No obvious connection to the rectum was identified. There was necrotic tissue contained within the cavity which was debrided sharply using a forecep and curved mensah scissors. The necrotic tissue extending to the muscle. Once all visible necrotic tissue was debrided and all purulent fluid evacuated, the wound was irrigated with saline and hemostasis ensured. Cultures were obtained upon initially entering the cavity. The wound was packed with one piece of dakins moistened kerlix. Local anesthetic was infilitarted into the ski n and subcutaneous tissue around the wound. The wound measured 7cm x 1cm x 9cm and there was undermining from 5-12oclock. The abscess cavity collectively measured 25cm. The wound was covered with 4x4 fluff gauze, abd pad, and tape. Mesh underwear was applied. The patient tolerated the procedure well. All sharps, instrument, and sponge counts were correct x2 at the end of the case. Patient's family updated. He will return to OR in 48 hours for dressing change and additional debridement if needed.
[2020-07-22] MEDS: metroNIDAZOLE/NS 500 MG/100 ML 500 MG/100 ML BAG IV SCH ×3 (08:16→23:24)
[2020-07-22] MEDS: HYDROmorphone 1 MG/1 ML INJ IV PRN (08:20)
--- NOTE | 2020-07-22 09:43 | Progress Note ---
Assessment and Plan Assessment and plan: Labs not done yet this morning -- Left perirectal abscess with necrotizing soft tissue infection Current Visit: Yes Status: Acute s/p incision, drainage, excisional debridement of left perirectal abscess and necrotizing soft tissue infection Wound measures: 7cmx 1cmx 9cm with undermining from 5-12o clock The abscess cavity is approximately 25 cm and tracks along the rectum and perineum Continue IV antibiotics Rocephin and Flagyl Wound care, pain management, Surgery and ID following --Sepsis secondary to left buttock abscess ; Current Visit: Yes Status: Acute Leukocytosis, tachycardia, Left buttock/perirectal abscess s/p I&D excisional debridement Continue postop and wound care --Ongoing tobacco abuse Current Visit: Yes Status: Acute . Smoking cessation counseling Nicotine patch as needed --Leukocytosis Current Visit: Yes Status: Acute Secondary to rectal abscess Continue antibiotic therapy Monitor WBC. Blood culture follow-up with results --Obesity; BMI 34.9 Current Visit: Yes Status: Acute Advised the patient diet modification Exercise as tolerated and weight reduction When medically stable --Full code status Current Visit: Yes Status: Acute Patient is full code --DVT prophylaxis Current Visit: Yes Status: Acute SCD. While resting Increase ambulation upon discharge Hold anticoagulants pending procedure We will closely monitor the patient and adjust management as needed Plan of care reviewed with the patient and his nurse Consults and recommendations noted and appreciated. History Interval history: I have seen and examined the patient at the bedside Patient's chart and medications reviewed Patient underwent incision drainage and debridement yesterday Patient has some discomfort at the site of surgery No fever Vital signs noted Hospitalist Physical - Constitutional Vitals: Temp Pulse Resp BP Pulse Ox 97.5 F L 88 18 95/71 99 07/22/20 05:38 07/22/20 05:38 07/22/20 05:38 07/22/20 05:38 07/22/20 05:38 General appearance: Present: mild distress, well-nourished, obese - EENT Eyes: Present: PERRL, EOM intact - Neck Neck: Present: supple, normal ROM - Respiratory Respiratory effort: normal Respiratory: bilateral: diminished, negative: rales, rhonchi, wheezing - Cardiovascular Rhythm: regular Heart Sounds: Present: S1 & S2 - Extremities Extremities: no ischemia, No edema - Abdominal General gastrointestinal: soft, non-tender, non-distended, normal bowel sounds - Integumentary Integumentary: Present: clear, warm - Psychiatric Psychiatric: appropriate mood/affect, cooperative - Neurologic Neurologic: CNII-XII intact, moves all extremities Results - Labs CBC & Chem 7: 07/22/20 09:31 07/22/20 09:31 Labs: Laboratory Last Values WBC 21.9 K/mm3 (4.5-11.0) H 07/20/20 19:26 RBC 5.16 M/mm3 (3.65-5.03) H 07/20/20 19:26 Hgb 15.6 gm/dl (11.8-15.2) H 07/20/20 19:26 Hct 46.4 % (35.5-45.6) H 07/20/20 19:26 MCV 90 fl (84-94) 07/20/20 19:26 MCH 30 pg (28-32) 07/20/20 19:26 MCHC 34 % (32-34) 07/20/20 19:26 RDW 13.6 % (13.2-15.2) 07/20/20 19:26 Plt Count 262 K/mm3 (140-440) 07/20/20 19:26 Add Manual Diff Complete 07/20/20 19:26 Total Counted 100 07/20/20 19:26 Seg Neuts % (Manual) 84.0 % (40.0-70.0) H 07/20/20 19:26 Band Neutrophils % 4.0 % 07/20/20 19:26 Lymphocytes % (Manual) 8.0 % (13.4-35.0) L 07/20/20 19:26 Monocytes % (Manual) 4.0 % (0.0-7.3) 07/20/20 19:26 Nucleated RBC % Not Reportable 07/20/20 19:26 Seg Neutrophils # Man 18.4 K/mm3 (1.8-7.7) H 07/20/20 19:26 Band Neutrophils # 0.9 K/mm3 07/20/20 19:26 Lymphocytes # (Manual) 1.8 K/mm3 (1.2-5.4) 07/20/20 19:26 Abs React Lymphs (Man) 0.0 K/mm3 07/20/20 19:26 Monocytes # (Manual) 0.9 K/mm3 (0.0-0.8) H 07/20/20 19:26 Eosinophils # (Manual) 0.0 K/mm3 (0.0-0.4) 07/20/20 19:26 Basophils # (Manual) 0.0 K/mm3 (0.0-0.1) 07/20/20 19:26 Metamyelocytes # 0.0 K/mm3 07/20/20 19:26 Myelocytes # 0.0 K/mm3 07/20/20 19:26 Promyelocytes # 0.0 K/mm3 07/20/20 19:26 Blast Cells # 0.0 K/mm3 07/20/20 19:26 WBC Morphology Not Reportable 07/20/20 19:26 Hypersegmented Neuts Not Reportable 07/20/20 19:26 Hyposegmented Neuts Not Reportable 07/20/20 19:26 Hypogranular Neuts Not Reportable 07/20/20 19:26 Smudge Cells Not Reportable 07/20/20 19:26 Toxic Granulation Not Reportable 07/20/20 19:26 Toxic Vacuolation Not Reportable 07/20/20 19:26 Dohle Bodies Not Reportable 07/20/20 19:26 Pelger-Huet Anomaly Not Reportable 07/20/20 19:26 Steve Rods Not Reportable 07/20/20 19:26 Platelet Estimate Consistent w auto 07/20/20 19:26 Clumped Platelets Not Reportable 07/20/20 19:26 Plt Clumps, EDTA Not Reportable 07/20/20 19:26 Large Platelets Not Reportable 07/20/20 19:26 Giant Platelets Not Reportable 07/20/20 19:26 Platelet Satelliting Not Reportable 07/20/20 19:26 Plt Morphology Comment Not Reportable 07/20/20 19:26 RBC Morphology Normal 07/20/20 19:26 Dimorphic RBCs Not Reportable 07/20/20 19:26 Polychromasia Not Reportable 07/20/20 19:26 Hypochromasia Not Reportable 07/20/20 19:26 Poikilocytosis Not Reportable 07/20/20 19:26 Anisocytosis Not Reportable 07/20/20 19:26 Microcytosis Not Reportable 07/20/20 19:26 Macrocytosis Not Reportable 07/20/20 19:26 Spherocytes Not Reportable 07/20/20 19:26 Pappenheimer Bodies Not Reportable 07/20/20 19:26 Sickle Cells Not Reportable 07/20/20 19:26 Target Cells Not Reportable 07/20/20 19:26 Tear Drop Cells Not Reportable 07/20/20 19:26 Ovalocytes Not Reportable 07/20/20 19:26 Helmet Cells Not Reportable 07/20/20 19:26 [place] Bodies Not Reportable 07/20/20 19:26 Lyman Rings Not Reportable 07/20/20 19:26 Chay Cells Not Reportable 07/20/20 19:26 Bite Cells Not Reportable 07/20/20 19:26 Crenated Cell Not Reportable 07/20/20 19:26 Elliptocytes Not Reportable 07/20/20 19:26 Acanthocytes (Spur) Not Reportable 07/20/20 19:26 Rouleaux Not Reportable 07/20/20 19:26 Hemoglobin C Crystals Not Reportable 07/20/20 19:26 Schistocytes Not Reportable 07/20/20 19:26 Malaria parasites Not Reportable 07/20/20 19:26 Yared Bodies Not Reportable 07/20/20 19:26 Hem Pathologist Commnt No 07/20/20 19:26 Sodium 132 mmol/L (137-145) L 07/20/20 19:26 Potassium 4.1 mmol/L (3.6-5.0) 07/20/20 19:26 Chloride 89.5 mmol/L (98-107) L 07/20/20 19:26 Carbon Dioxide 26 mmol/L (22-30) 07/20/20 19:26 Anion Gap 21 mmol/L 07/20/20 19:26 BUN 14 mg/dL (9-20) 07/20/20 19:26 Creatinine 1.1 mg/dL (0.8-1.3) 07/20/20 19:26 Estimated GFR > 60 ml/min 07/20/20 19:26 BUN/Creatinine Ratio 13 % 07/20/20 19:26 Glucose 107 mg/dL (75-100) H 07/20/20 19:26 Hemoglobin A1c 5.5 % (4-6) 07/21/20 07:52 Calcium 8.8 mg/dL (8.4-10.2) 07/20/20 19:26 Total Bilirubin 1.40 mg/dL (0.1-1.2) H 07/20/20 19:26 AST 27 units/L (5-40) 07/20/20 19:26 ALT 15 units/L (7-56) 07/20/20 19:26 Alkaline Phosphatase 81 units/L (35-129) 07/20/20 19:26 Total Protein 7.0 g/dL (6.3-8.2) 07/20/20 19:26 Albumin 3.9 g/dL (3.9-5) 07/20/20 19:26 Albumin/Globulin Ratio 1.3 % 07/20/20 19:26 Microbiology: Microbiology 07/20/20 20:57 Peripheral/Venous Blood Culture - Preliminary NO GROWTH AFTER 24 HOURS 07/20/20 20:57 Peripheral/Venous Blood Culture - Preliminary NO GROWTH AFTER 24 HOURS Chavez/IV: Voiding Method Toilet Active Medications - Current Medications Current Medications: Generic Name Dose Route Start Last Admin Trade Name Freq PRN Reason Stop Dose Admin Acetaminophen 650 mg 07/21/20 03:10 07/21/20 15:47 Acetaminophen 325 Mg Tab PO 650 mg Q4H PRN Administration Pain MILD(1-3)/Fever >100.5/REYEZ Al Hydrox/Mg Hydrox/Simethicone 30 ml 07/21/20 03:10 Alum-Mag Hydroxide-Simethicone [id number] Oral Liqd 30 Ml PO Q4H PRN Indigestion Hydralazine HCl 5 mg 07/21/20 07:00 Hydralazine 20 Mg/1 Ml Inj IV Q4HR PRN Hypertension Hydromorphone HCl 0.5 mg 07/21/20 18:00 07/22/20 08:20 Hydromorphone 1 Mg/1 Ml Inj IV 0.5 mg Q3H PRN Administration Pain , Severe (7-10) Metronidazole 500 mg in 100 mls @ 100 mls/hr 07/21/20 08:00 07/22/20 08:16 Flagyl 500 Mg/100 Ml IV 100 mls/hr Q8H EDITH Administration Protocol Ceftriaxone Sodium 2 gm in 100 mls @ 200 mls/hr 07/21/20 13:00 07/21/20 12:55 Rocephin/Ns 2 Gm/100 Ml IV 200 mls/hr Q24HR EDITH Administration Protocol Dextrose/Sodium Chloride 1,000 mls @ 125 mls/hr 07/21/20 14:00 07/21/20 23:12 D5ns IV 125 mls/hr DIRECT EDITH Administration Magnesium Hydroxide 30 ml 07/21/20 03:10 Magnesium Hydroxide (Mom) Oral Liqd Udc PO Q4H PRN Constipation Morphine Sulfate 2 mg 07/21/20 14:45 07/21/20 15:20 Morphine 2 Mg/1 Ml Inj IV 2 mg Q6H PRN Administration Pain , Severe (7-10) Ondansetron HCl 4 mg 07/21/20 03:10 Ondansetron 4 Mg/2 Ml Inj IV Q8H PRN Nausea And Vomiting Oxycodone/Acetaminophen 1 tab 07/21/20 14:21 Oxycodone /Acetaminophen 5-325mg Tab PO Q6H PRN Pain, Moderate (4-6) Senna 8.6 mg 07/21/20 03:10 Sennosides 8.6 Mg Tab PO Q12HR PRN Constipation Sodium Chloride 10 ml 07/21/20 03:10 Sodium Chloride 0.9% 10 Ml Flush Syringe IV PRN PRN LINE FLUSH
[2020-07-22 09:57] LABS: Basophils % (Auto) 0.2 % (0.0-1.8); Hematocrit 35.6 % (35.5-45.6); Hemoglobin 12.1 gm/dl (11.8-15.2); Lymphocytes # (Auto) 0.6 K/mm3 (1.2-5.4); Mean Corpuscular HGB Conc 34 % (32-34); Mean Corpuscular Volume 88 fl (84-94); Monocytes # (Auto) 1.1 K/mm3 (0.0-0.8); Monocytes % (Auto) 6.8 % (0.0-7.3); Platelet Count 207 K/mm3 (140-440); Red Blood Count 4.03 M/mm3 (3.65-5.03); Red Cell Distribution Width 13.6 % (13.2-15.2)
[2020-07-22] MEDS: cefTRIAXone/NS 2 GM/100 ML 2 GM/100 ML BAG IV SCH (10:18)
[2020-07-22 10:21] LABS: Albumin 2.8 g/dL (3.9-5); Calcium 8.2 mg/dL (8.4-10.2)
--- NOTE | 2020-07-22 11:13 | Progress Note ---
Assessment and Plan 59-year-old male status post incision, drainage, excisional debridement of left perirectal abscess and necrotizing soft tissue infection, POD 1 Plan: 1. Reg diet 2. NPO p MN 3. IVF 4. prn pain control 5. IV abx per ID 6. follow up intraop abscess cultures 7. Plan to return to OR tomorrow for debridement, washout of wound, and dressing change. Added to OR schedule for 07/23/20 @13:00. Consent obtained. Thank you for this consultation. Please call with any questions or concerns. Evaluation and treatment of this patient was during the time of the national and state emergency arising from COVID19 coronavirus pandemic. Treatment and procedures performed meet the current and available best practice and guidelines for patient during the COVID pandemic. Subjective Date of service: 07/22/20 Narrative: Pt seen and examined. c/o pain at surgical site. States he feels better than admission. No f/c today. Objective Vital Signs - 12hr 07/21/20 07/22/20 23:15 05:38 Temperature 97.5 F L Pulse Rate 80 88 Respiratory 18 18 Rate Blood Pressure 95/71 Blood Pressure 107/75 [Right] O2 Sat by Pulse 100 99 Oximetry - General physical appearance Narrative Exam: Gen.: Awake, alert, oriented x3. No apparent distress ENT: Trachea midline. No lymphadenopathy. No scleral icterus or conjunctival pallor CV: S1, S2 present Respiratory: No audible wheezes Extremities: No clubbing, cyanosis, edema Gluteal: Dressing with serosanguineous drainage present. - Labs 07/22/20 09:31 07/22/20 09:31 Diabetes panel 07/22/20 Range/Units 09:31 Sodium 136 L (137-145) mmol/L Potassium 3.4 L (3.6-5.0) mmol/L Chloride 96.8 L (98-107) mmol/L Carbon Dioxide 30 (22-30) mmol/L BUN 32 H (9-20) mg/dL Creatinine 1.5 H (0.8-1.3) mg/dL Glucose 133 H (75-100) mg/dL Calcium 8.2 L (8.4-10.2) mg/dL AST 31 (5-40) units/L ALT 17 (7-56) units/L Alkaline Phosphatase 50 (35-129) units/L Total Protein 6.1 L (6.3-8.2) g/dL Albumin 2.8 L (3.9-5) g/dL Calcium panel 07/22/20 Range/Units 09:31 Calcium 8.2 L (8.4-10.2) mg/dL Albumin 2.8 L (3.9-5) g/dL Pituitary panel 07/22/20 Range/Units 09:31 Sodium 136 L (137-145) mmol/L Potassium 3.4 L (3.6-5.0) mmol/L Chloride 96.8 L (98-107) mmol/L Carbon Dioxide 30 (22-30) mmol/L BUN 32 H (9-20) mg/dL Creatinine 1.5 H (0.8-1.3) mg/dL Glucose 133 H (75-100) mg/dL Calcium 8.2 L (8.4-10.2) mg/dL Adrenal panel 07/22/20 Range/Units 09:31 Sodium 136 L (137-145) mmol/L Potassium 3.4 L (3.6-5.0) mmol/L Chloride 96.8 L (98-107) mmol/L Carbon Dioxide 30 (22-30) mmol/L BUN 32 H (9-20) mg/dL Creatinine 1.5 H (0.8-1.3) mg/dL Glucose 133 H (75-100) mg/dL Calcium 8.2 L (8.4-10.2) mg/dL Total Bilirubin 0.60 (0.1-1.2) mg/dL AST 31 (5-40) units/L ALT 17 (7-56) units/L Alkaline Phosphatase 50 (35-129) units/L Total Protein 6.1 L (6.3-8.2) g/dL Albumin 2.8 L (3.9-5) g/dL
--- NOTE | 2020-07-22 14:08 | Post Anesthesia Evaluation ---
- Post Anesthesia Evaluation Patient Participated: Yes Airway Patent: Yes Stable Respiratory Function: Yes Nausea/Vomiting: No Temp > 96.8F: Yes Pain Manageable: Yes Adequeate Hydration: Yes Anesthesia Complications: No Block Receding Appropriately: Not Applicable Patient on Ventilator: No
--- NOTE | 2020-07-22 14:09 | Anesthesia Consultation ---
<JONA TOSCANO - Last Filed: 07/22/20 14:08> Anesthesia Consult and Med Hx Date of service: 07/23/20 - Airway Anesthetic Teeth Evaluation: Poor ROM Head & Neck: Adequate Mental/Hyoid Distance: Adequate Mallampati Class: Class III Intubation Access Assessment: Probably Good - Pulmonary Exam CTA: Yes - Cardiac Exam Cardiac Exam: RRR - Pre-Operative Health Status ASA Pre-Surgery Classification: ASA2, ASA3 Proposed Anesthetic Plan: General, MAC (No GAC, No FHAC) - Pulmonary Hx Smoking: Yes (1 pack/day x 30 years) Hx Asthma: No COPD: No Hx Pneumonia: No Hx Sleep Apnea: No (snoring) - Cardiovascular System Hx Hypertension: No Hx Cardia Arrhythmia: No - Central Nervous System Hx Neuromuscular Disorder: No Hx Back Pain: Yes (arthritis) - Endocrine Hx End Stage Renal Disease: No - Other Systems Hx Obesity: Yes (BMI 34.5) <DARI BROCK - Last Filed: 07/23/20 15:49> Anesthesia Consult and Med Hx - Pre-Operative Health Status ASA Pre-Surgery Classification: ASA3
--- NOTE | 2020-07-22 14:56 | Progress Note ---
Assessment and Plan Cultures: Blood culture no growth so far. A/P: 59-year-old man past medical history hemorrhoids, buttock abscess presents with extensive buttock abscess #L buttock abscess: with deep tracking, s/p initial I&D by surgery. extensive cavity measuring 25cm #Elevated bilirubin: consider RUQ USS #Obesity Recs: -Start ceftriaxone/Flagyl -Vancomycin dosed per pharmacy -returning to surgery tomorrow for closure/repeat debridement if necessary -Obtain cultures from debridement. -RUQ USS Thank you for the consult, we will continue to follow. Gabriel La MD [facility] ([facility]) O: [phone] F: [phone] Subjective Date of service: 07/22/20 Interval history: Afebrile over last 24 hours, white count improved to 15.6 blood cultures remain negative. Went to the OR last night for I&D of abscess. Objective - Exam Narrative Exam: Physical Exam: Constitutional: Alert, cooperative. No acute distress Head, Ears, Nose: Normocephalic, atraumatic. External ears, nose normal Eyes: Conjunctivae/corneas clear. No icterus. No ptosis. Neck: Supple, no meningeal signs Oral: dentition fair, no thrush Cardiovascular: S1, S2 normal. Respiratory: Good air entry, clear to auscultation bilaterally GI: Soft, non-tender; bowel sounds normal. No peritoneal signs. Musculoskeletal: left buttock pain, swelling, redness Skin: No rash or abscess Hem/Lymphatic: No palpable cervical or supraclavicular nodes. No lymphangitis Psych: Mood ok. Affect normal Neurological: Awake, alert, oriented. No gross abnormality - Constitutional Vitals: Vital Signs Temp Pulse Resp BP Pulse Ox 97.6 F 94 H 24 114/67 94 07/22/20 11:47 07/22/20 11:47 07/22/20 11:47 07/22/20 11:47 07/22/20 11:47 Temperature -Last 24 Hours Temperature 97.6 F Temperature 97.5 F Temperature 98.1 F Temperature 98.2 F Temperature 98.7 F Temperature 98.2 F Temperature 102.8 F - Labs CBC & Chem 7: 07/22/20 09:31 07/22/20 09:31 Labs: Abnormal lab results 07/22/20 07/22/20 Range/Units 09:31 09:31 WBC 15.6 H (4.5-11.0) K/mm3 Lymph % (Auto) 4.0 L (13.4-35.0) % Lymph # (Auto) 0.6 L (1.2-5.4) K/mm3 [place] # (Auto) 1.1 H (0.0-0.8) K/mm3 Seg Neutrophils % 89.0 H (40.0-70.0) % Seg Neutrophils # 13.9 H (1.8-7.7) K/mm3 Sodium 136 L (137-145) mmol/L Potassium 3.4 L (3.6-5.0) mmol/L Chloride 96.8 L (98-107) mmol/L BUN 32 H (9-20) mg/dL Creatinine 1.5 H (0.8-1.3) mg/dL Glucose 133 H (75-100) mg/dL Calcium 8.2 L (8.4-10.2) mg/dL Total Protein 6.1 L (6.3-8.2) g/dL Albumin 2.8 L (3.9-5) g/dL
[2020-07-22] MEDS ORDERED: VANCOMYCIN PHARMACY TO DOSE IV SCH (15:00)
[2020-07-22] MEDS ORDERED: VANCOMYCIN 2,000 MG in SODIUM CHLORIDE 0.9% 500 ML 500 ML IV ONE (16:00)
[2020-07-22] MEDS: D5W/0.9% NACL 1,000 ML IV SCH (23:38)
[2020-07-22] MEDS: MORPHINE 2 MG/1 ML INJ IV PRN (23:38)
[2020-07-23] MEDS: metroNIDAZOLE/NS 500 MG/100 ML 500 MG/100 ML BAG IV SCH ×3 (08:00→23:13)
[2020-07-23 08:20] LABS: BUN/Creatinine Ratio 16; Blood Urea Nitrogen 18 mg/dL (9-20); Calcium 7.9 mg/dL (8.4-10.2); Hemolysis Index 33
[2020-07-23] MEDS: D5W/0.9% NACL 1,000 ML IV SCH ×2 (09:45→23:14)
[2020-07-23] MEDS: cefTRIAXone/NS 2 GM/100 ML 2 GM/100 ML BAG IV SCH (09:46)
--- NOTE | 2020-07-23 10:15 | Progress Note ---
Assessment and Plan Cultures: Blood culture no growth so far. A/P: 59-year-old man past medical history hemorrhoids, buttock abscess presents with extensive buttock abscess #L buttock abscess: with deep tracking, s/p initial I&D by surgery. extensive cavity measuring 25cm #Elevated bilirubin: consider RUQ USS #Obesity Recs: -Start ceftriaxone/Flagyl -Vancomycin dosed per pharmacy -returning to surgery today for closure/repeat debridement if necessary -Follow up surgical cultures Thank you for the consult, we will continue to follow. Gabriel La MD [facility] ([facility]) O: [phone] F: [phone] Subjective Date of service: 07/23/20 Interval history: Afebrile, returning to OR today. Objective - Exam Narrative Exam: Physical Exam: Constitutional: Alert, cooperative. No acute distress Head, Ears, Nose: Normocephalic, atraumatic. External ears, nose normal Eyes: Conjunctivae/corneas clear. No icterus. No ptosis. Neck: Supple, no meningeal signs Oral: dentition fair, no thrush Cardiovascular: S1, S2 normal. Respiratory: Good air entry, clear to auscultation bilaterally GI: Soft, non-tender; bowel sounds normal. No peritoneal signs. Musculoskeletal: left buttock pain, swelling, redness Skin: No rash or abscess Hem/Lymphatic: No palpable cervical or supraclavicular nodes. No lymphangitis Psych: Mood ok. Affect normal Neurological: Awake, alert, oriented. No gross abnormality - Constitutional Vitals: Vital Signs Temp Pulse Resp BP Pulse Ox 97.6 F 89 24 133/78 98 07/22/20 16:38 07/22/20 16:38 07/22/20 16:38 07/22/20 16:38 07/22/20 16:38 Temperature -Last 24 Hours Temperature 97.6 F Temperature 97.6 F - Labs CBC & Chem 7: 07/22/20 09:31 07/23/20 07:36 Labs: Abnormal lab results 07/22/20 07/23/20 Range/Units 09:31 07:36 Sodium 136 L 136 L (137-145) mmol/L Potassium 3.4 L (3.6-5.0) mmol/L Chloride 96.8 L (98-107) mmol/L Carbon Dioxide 32 H (22-30) mmol/L BUN 32 H (9-20) mg/dL Creatinine 1.5 H (0.8-1.3) mg/dL Glucose 133 H 182 H (75-100) mg/dL Calcium 8.2 L 7.9 L (8.4-10.2) mg/dL Total Protein 6.1 L (6.3-8.2) g/dL Albumin 2.8 L (3.9-5) g/dL
[2020-07-23] MEDS ORDERED: HYDROGEN PEROXIDE 118 ML SOLUTION ONE (12:24)
[2020-07-23] MEDS ORDERED: BUPIVACAINE/PF (0.5%) 5 MG/1 ML 30 ML VIAL INFILTRATI ONE ×2 (12:24→13:43)
[2020-07-23] MEDS ORDERED: propofoL 200 MG/20 ML VIAL IV ONE ×6 (12:44→13:45)
[2020-07-23] MEDS ORDERED: fentaNYL 100 MCG/2 ML INJ ONE (12:45)
[2020-07-23] MEDS ORDERED: KETAMINE/STERILE WATER 50 MG/ML SYRINGE ONE (12:45)
[2020-07-23] MEDS ORDERED: MIDAZOLAM 2 MG/2 ML INJ ONE (12:47)
[2020-07-23] MEDS ORDERED: HYDROmorphone 1 MG/1 ML INJ ONE (13:34)
[2020-07-23] MEDS ORDERED: SODIUM CHLORIDE 0.9% IRRIG SOLN 2000 ML IR ONE (13:47)
[2020-07-23] MEDS ORDERED: SODIUM CHLORIDE 0.9% IRR 1,500 ML BOTTLE IR ONE (13:53)
--- NOTE | 2020-07-23 14:38 | Post Operative Note ---
Pre-op diagnosis: perirectal/left gluteal necrotizing soft tissue infection Post-op diagnosis: same Procedure: excisional debridement, washout of left gluteal/perirectal wound, application of wound vac Anesthesia: MAC, local Surgeon: LIZBETH SINGH [employer] Supervisor: DANIELLE BRAUN Estimated blood loss: minimal Pathology: none Condition: stable Disposition: PACU
[2020-07-23] MEDS: HYDROmorphone 1 MG/1 ML INJ IV PRN ×3 (14:51→17:37)
[2020-07-23] MEDS ORDERED: LACTATED RINGERS 1,000 ML ONE (15:00)
[2020-07-23] MEDS ORDERED: ONDANSETRON 4 MG/2 ML INJ IV PRN (15:00)
--- NOTE | 2020-07-23 15:51 | Anesthesia Day of Surgery ---
Anesthesia Day of Surgery - Day of Surgery Patient Examined: Yes Patient H&P Reviewed: Yes Patient is NPO: Yes
[2020-07-23] MEDS: VANCOMYCIN 1,250 MG in SODIUM CHLORIDE 0.9% 250ML 250 ML IV SCH (16:01)
--- NOTE | 2020-07-23 16:12 | Progress Note ---
Assessment and Plan Assessment and plan: --Perirectal/left gluteal necrotizing soft tissue infection S/P[ 07/23/2020 ] repeat excisional debridement, washout of left gluteal/perirectal wound, application of wound vac Continue wound care, IV antibiotics, supportive care -- Left perirectal abscess with necrotizing soft tissue infection Current Visit: Yes Status: Acute 07/21/2020 -s/p incision, drainage, excisional debridement of left perirectal abscess and necrotizing soft tissue infection Wound measures: 7cmx 1cmx 9cm with undermining from 5-12o clock The abscess cavity is approximately 25 cm and tracks along the rectum and perineum Continue IV antibiotics vancomycin, Rocephin and Flagyl as recommended by ID Wound care, pain management, Surgery and ID following --Sepsis secondary to left buttock abscess ; Current Visit: Yes Status: Acute Leukocytosis, tachycardia, Left buttock/perirectal abscess s/p I&D excisional debridement Repeat excisional debridement and wound VAC placement Continue postop and wound care --Ongoing tobacco abuse Current Visit: Yes Status: Acute . Smoking cessation counseling Nicotine patch as needed --Leukocytosis Current Visit: Yes Status: Acute Secondary to rectal abscess Continue antibiotic therapy Monitor WBC. Blood culture follow-up with results --Obesity; BMI 34.9 Current Visit: Yes Status: Acute Advised the patient diet modification Exercise as tolerated and weight reduction When medically stable --Full code status Current Visit: Yes Status: Acute Patient is full code --DVT prophylaxis Current Visit: Yes Status: Acute SCD. While resting Increase ambulation upon discharge Hold anticoagulants pending procedure We will closely monitor the patient and adjust management as needed Plan of care reviewed with the patient and his nurse Consults and recommendations noted and appreciated. Patient may need home wound care, home health and wound VAC at discharge 07/23/2020; repeat excisional debridement, wound VAC placement 07/22/2020; continue antibiotics vancomycin Rocephin and Flagyl per ID 07/21/2020; incision drainage of abscess and excisional debridement History Interval history: I have seen and examined the patient at the bedside Patient's chart and medications reviewed Patient is scheduled repeat surgical debridement And also wound VAC placement Patient tolerated the procedure well Vital signs noted Hospitalist Physical - Constitutional Vitals: Temp Pulse Resp BP Pulse Ox 97.6 F 91 H 16 130/72 99 07/23/20 14:41 07/23/20 15:15 07/23/20 15:15 07/23/20 15:15 07/23/20 15:15 General appearance: Present: mild distress, well-nourished, obese - EENT Eyes: Present: PERRL, EOM intact - Neck Neck: Present: supple, normal ROM - Respiratory Respiratory effort: normal Respiratory: bilateral: diminished, negative: rales, rhonchi, wheezing - Cardiovascular Rhythm: regular Heart Sounds: Present: S1 & S2 - Extremities Extremities: no ischemia, No edema - Abdominal General gastrointestinal: soft, non-tender, non-distended, normal bowel sounds - Integumentary Integumentary: Present: clear, warm - Psychiatric Psychiatric: appropriate mood/affect, cooperative - Neurologic Neurologic: CNII-XII intact, moves all extremities Results - Labs CBC & Chem 7: 07/22/20 09:31 07/23/20 07:36 Labs: Laboratory Last Values WBC 15.6 K/mm3 (4.5-11.0) H 07/22/20 09:31 RBC 4.03 M/mm3 (3.65-5.03) 07/22/20 09:31 Hgb 12.1 gm/dl (11.8-15.2) D 07/22/20 09:31 Hct 35.6 % (35.5-45.6) D 07/22/20 09:31 MCV 88 fl (84-94) 07/22/20 09:31 MCH 30 pg (28-32) 07/22/20 09:31 MCHC 34 % (32-34) 07/22/20 09:31 RDW 13.6 % (13.2-15.2) 07/22/20 09:31 Plt Count 207 K/mm3 (140-440) 07/22/20 09:31 Lymph % (Auto) 4.0 % (13.4-35.0) L 07/22/20 09:31 [place] % (Auto) 6.8 % (0.0-7.3) 07/22/20 09:31 Eos % (Auto) 0.0 % (0.0-4.3) 07/22/20 09:31 Baso % (Auto) 0.2 % (0.0-1.8) 06/09/21 09:31 Lymph # (Auto) 0.6 K/mm3 (1.2-5.4) L 07/22/20 09:31 [place] # (Auto) 1.1 K/mm3 (0.0-0.8) H 07/22/20 09:31 Eos # (Auto) 0.0 K/mm3 (0.0-0.4) 07/22/20 09:31 Baso # (Auto) 0.0 K/mm3 (0.0-0.1) 07/22/20 09:31 Add Manual Diff Complete 07/20/20 19:26 Total Counted 100 07/20/20 19:26 Seg Neutrophils % 89.0 % (40.0-70.0) H 07/22/20 09:31 Seg Neuts % (Manual) 84.0 % (40.0-70.0) H 07/20/20 19:26 Band Neutrophils % 4.0 % 07/20/20 19:26 Lymphocytes % (Manual) 8.0 % (13.4-35.0) L 07/20/20 19:26 Monocytes % (Manual) 4.0 % (0.0-7.3) 07/20/20 19:26 Nucleated RBC % Not Reportable 07/20/20 19:26 Seg Neutrophils # 13.9 K/mm3 (1.8-7.7) H 07/22/20 09:31 Seg Neutrophils # Man 18.4 K/mm3 (1.8-7.7) H 07/20/20 19:26 Band Neutrophils # 0.9 K/mm3 07/20/20 19:26 Lymphocytes # (Manual) 1.8 K/mm3 (1.2-5.4) 07/20/20 19:26 Abs React Lymphs (Man) 0.0 K/mm3 07/20/20 19:26 Monocytes # (Manual) 0.9 K/mm3 (0.0-0.8) H 07/20/20 19:26 Eosinophils # (Manual) 0.0 K/mm3 (0.0-0.4) 07/20/20 19:26 Basophils # (Manual) 0.0 K/mm3 (0.0-0.1) 07/20/20 19:26 Metamyelocytes # 0.0 K/mm3 07/20/20 19:26 Myelocytes # 0.0 K/mm3 07/20/20 19:26 Promyelocytes # 0.0 K/mm3 07/20/20 19:26 Blast Cells # 0.0 K/mm3 07/20/20 19:26 WBC Morphology Not Reportable 07/20/20 19:26 Hypersegmented Neuts Not Reportable 07/20/20 19:26 Hyposegmented Neuts Not Reportable 07/20/20 19:26 Hypogranular Neuts Not Reportable 07/20/20 19:26 Smudge Cells Not Reportable 07/20/20 19:26 Toxic Granulation Not Reportable 07/20/20 19:26 Toxic Vacuolation Not Reportable 07/20/20 19:26 Dohle Bodies Not Reportable 07/20/20 19:26 Pelger-Huet Anomaly Not Reportable 07/20/20 19:26 Steve Rods Not Reportable 07/20/20 19:26 Platelet Estimate Consistent w auto 07/20/20 19:26 Clumped Platelets Not Reportable 07/20/20 19:26 Plt Clumps, EDTA Not Reportable 07/20/20 19:26 Large Platelets Not Reportable 07/20/20 19:26 Giant Platelets Not Reportable 07/20/20 19:26 Platelet Satelliting Not Reportable 07/20/20 19:26 Plt Morphology Comment Not Reportable 07/20/20 19:26 RBC Morphology Normal 07/20/20 19:26 Dimorphic RBCs Not Reportable 07/20/20 19:26 Polychromasia Not Reportable 07/20/20 19:26 Hypochromasia Not Reportable 07/20/20 19:26 Poikilocytosis Not Reportable 07/20/20 19:26 Anisocytosis Not Reportable 07/20/20 19:26 Microcytosis Not Reportable 07/20/20 19:26 Macrocytosis Not Reportable 07/20/20 19:26 Spherocytes Not Reportable 07/20/20 19:26 Pappenheimer Bodies Not Reportable 07/20/20 19:26 Sickle Cells Not Reportable 07/20/20 19:26 Target Cells Not Reportable 07/20/20 19:26 Tear Drop Cells Not Reportable 07/20/20 19:26 Ovalocytes Not Reportable 07/20/20 19:26 Helmet Cells Not Reportable 07/20/20 19:26 [place] Bodies Not Reportable 07/20/20 19:26 [place] Rings Not Reportable 07/20/20 19:26 Chay Cells Not Reportable 07/20/20 19:26 Bite Cells Not Reportable 07/20/20 19:26 Crenated Cell Not Reportable 07/20/20 19:26 Elliptocytes Not Reportable 07/20/20 19:26 Acanthocytes (Spur) Not Reportable 07/20/20 19:26 Rouleaux Not Reportable 07/20/20 19:26 Hemoglobin C Crystals Not Reportable 07/20/20 19:26 Schistocytes Not Reportable 07/20/20 19:26 Malaria parasites Not Reportable 07/20/20 19:26 Yared Bodies Not Reportable 07/20/20 19:26 Hem Pathologist Commnt No 07/20/20 19:26 Sodium 136 mmol/L (137-145) L 07/23/20 07:36 Potassium 3.7 mmol/L (3.6-5.0) 07/23/20 07:36 Chloride 99.7 mmol/L (98-107) 07/23/20 07:36 Carbon Dioxide 32 mmol/L (22-30) H 07/23/20 07:36 Anion Gap 8 mmol/L 07/23/20 07:36 BUN 18 mg/dL (9-20) 07/23/20 07:36 Creatinine 1.1 mg/dL (0.8-1.3) 07/23/20 07:36 Estimated GFR > 60 ml/min 07/23/20 07:36 BUN/Creatinine Ratio 16 % 07/23/20 07:36 Glucose 182 mg/dL (75-100) H 07/23/20 07:36 Hemoglobin A1c 5.5 % (4-6) 07/21/20 07:52 Calcium 7.9 mg/dL (8.4-10.2) L 07/23/20 07:36 Total Bilirubin 0.60 mg/dL (0.1-1.2) 07/22/20 09:31 AST 31 units/L (5-40) 07/22/20 09:31 ALT 17 units/L (7-56) 07/22/20 09:31 Alkaline Phosphatase 50 units/L (35-129) 07/22/20 09:31 Total Protein 6.1 g/dL (6.3-8.2) L 07/22/20 09:31 Albumin 2.8 g/dL (3.9-5) L 07/22/20 09:31 Albumin/Globulin Ratio 0.8 % 07/22/20 09:31 Microbiology: Microbiology 07/21/20 Unknown Buttock Anaerobic Culture - Preliminary 07/21/20 Unknown Buttock Surgical Culture - Final Beta Hemolytic Strep Group F 07/20/20 20:57 Peripheral/Venous Blood Culture - Preliminary NO GROWTH AFTER 48 HOURS 07/20/20 20:57 Peripheral/Venous Blood Culture - Preliminary NO GROWTH AFTER 48 HOURS Chavez/IV: Voiding Method Toilet Active Medications - Current Medications Current Medications: Generic Name Dose Route Start Last Admin Trade Name Freq PRN Reason Stop Dose Admin Acetaminophen 650 mg 07/21/20 03:10 07/21/20 15:47 Acetaminophen 325 Mg Tab PO 650 mg Q4H PRN Administration Pain MILD(1-3)/Fever >100.5/REYEZ Al Hydrox/Mg Hydrox/Simethicone 30 ml 07/21/20 03:10 Alum-Mag Hydroxide-Simethicone [phone]/5ml Oral Liqd 30 Ml PO Q4H PRN Indigestion Hydralazine HCl 5 mg 07/21/20 07:00 Hydralazine 20 Mg/1 Ml Inj IV Q4HR PRN Hypertension Hydromorphone HCl 0.5 mg 07/21/20 18:00 07/22/20 08:20 Hydromorphone 1 Mg/1 Ml Inj IV 0.5 mg Q3H PRN Administration Pain , Severe (7-10) Hydromorphone HCl 0.5 mg 07/23/20 15:00 07/23/20 15:01 Hydromorphone 1 Mg/1 Ml Inj IV 07/23/20 18:00 0.5 mg Q10MIN PRN Administration Pain , Severe (7-10) Metronidazole 500 mg in 100 mls @ 100 mls/hr 07/21/20 08:00 07/23/20 16:06 Flagyl 500 Mg/100 Ml IV 100 mls/hr Q8H EDITH Administration Protocol Ceftriaxone Sodium 2 gm in 100 mls @ 200 mls/hr 07/21/20 13:00 07/23/20 09:46 Rocephin/Ns 2 Gm/100 Ml IV 200 mls/hr Q24HR EDITH Administration Protocol Dextrose/Sodium Chloride 1,000 mls @ 125 mls/hr 07/21/20 14:00 07/23/20 09:45 D5ns IV 125 mls/hr DIRECT EDITH Administration Vancomycin HCl 1,250 mg/ 275 mls @ 166.667 mls/hr 07/23/20 12:00 07/23/20 16:01 Sodium Chloride IV 166.667 mls/hr Q12H EDITH Administration Magnesium Hydroxide 30 ml 07/21/20 03:10 Magnesium Hydroxide (Mom) Oral Liqd Udc PO Q4H PRN Constipation Ondansetron HCl 4 mg 07/21/20 03:10 Ondansetron 4 Mg/2 Ml Inj IV Q8H PRN Nausea And Vomiting Ondansetron HCl 4 mg 07/23/20 15:00 Ondansetron 4 Mg/2 Ml Inj IV 07/23/20 20:00 ONCE PRN Nausea And Vomiting Oxycodone/Acetaminophen 1 tab 07/21/20 14:21 Oxycodone /Acetaminophen 5-325mg Tab PO Q6H PRN Pain, Moderate (4-6) Senna 8.6 mg 07/21/20 03:10 Sennosides 8.6 Mg Tab PO Q12HR PRN Constipation Sodium Chloride 10 ml 07/21/20 03:10 07/23/20 09:46 Sodium Chloride 0.9% 10 Ml Flush Syringe IV 10 ml PRN PRN Administration LINE FLUSH Nutrition/Malnutrition Assess - Dietary Evaluation Nutrition/Malnutrition Findings: Nutrition Notes Start: 07/23/20 14:25 Freq: Status: Active Protocol: Document 07/23/20 14:25 (Rec: 07/23/20 14:35 [id number]) Nutrition Notes Need for Assessment generated from: MD Order Initial or Follow up Assessment Other Pertinent Diagnosis L buttock abscess Current Diet NPO Labs/Tests Na 136 Pertinent Medications D5NS at 125 ml/hr Height 5 ft 11 in Weight 113.398 kg [place] Body Weight (kg) 78.18 BMI 34.8 Intake Prior to Admission Poor Weight Status Obese Subjective/Other Information MD order for ONS. Pt with 9cm L buttox abscess. 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 Pt had carmen and toast this AM. Pt willing to try ONS when diet advanced. Pt going to surgery this afternoon. Pt likely Garth canidate following removal of NPO status. Burn Absent Trauma Absent Current % PO Poor (25-49%) Minimum of two criteria No physical signs of malnutrition #1 Nutrition Diagnosis Increased nutrient needs ( specify in comment below) Comments: protein Etiology wound healing As Evidenced by Signs and Symptoms pt with buttock absess Is patient on ventilator? No Is Patient Ambulatory and/or Out of Bed Yes REE-([facility]-ambulatory/OOB) [ 2575.443 NUTR.[id number]] Kcal/Kg value to use for calculation 18 Approximate Energy Requirements Using 1 kcal/Kg Calculation Used for Recommendations Kcal/kg Additional Notes Protein: (1.25-1.5g/kg AdjBW: 96kg) 120-144g Fluid: 1 ml/kcal Nutrition Intervention Change Diet Order: Advance as able Add Supplement/Snack (indicate name/kcal Ensure High protein TID /protein ) Garth BID Provides kCal: 670 Provides Protein (gm) 53 Goal #1 diet advancement Anticipated Discharge Needs: High protein, Garth BID Follow-Up By: 07/27/20 Additional Comments FU for diet advancement and intakes
--- NOTE | 2020-07-23 17:09 | Operative Report ---
Operative Report Operative Report: Date: 07/23/20 Pre-op diagnosis: perirectal/left gluteal necrotizing soft tissue infection Post-op diagnosis: same Procedure: excisional debridement, washout of left gluteal/perirectal wound, application of wound vac Anesthesia: YOGESH, local Surgeon: LIZBETH SINGH Graphite Disk Assembler: DANIELLE BRAUN Estimated blood loss: minimal Pathology: none Condition: stable Disposition: PACU HPI and indication: Patient is a 59-year-old male who presented to the emergency room with a perirectal/left gluteal abscess. He underwent incision and drainage of the perirectal abscess on 07/21/2020 and was found to have a necrotizing soft tissue infection. It was recommended that the patient return to the operating room in 48 hours for dressing change, additional debridement if necessary, and possible wound VAC placement. All risk, benefits, alternatives to surgery were discussed and questions answered. Consent was obtained. Procedure in detail: Patient was identified in the preoperative area, taken back to the operating room and placed on the operating room table in prone position. All bony prominences were padded appropriately. After anesthesia was induced, the patient was placed in jackknife position and the buttocks taped apart. The wound packing was removed which was 1 piece of Kerlix. The area was then prepped with Betadine and draped in usual sterile fashion and a timeout was performed. The wound was thoroughly inspected and there was foul-smelling purulent drainage from the inferior aspect of the wound where there was tunneling along the perineal tissue and the perirectal area. Therefore the wound was extended in a cephalad and caudad direction resulting in a T-shaped incision. The necrotic subcutaneous tissue was sharply debrided using forceps and a curved Milner scissor. All visible devitalized tissue was debrided sati sfactorily. The wound was then irrigated with pulse lavage. 4 L of saline was used. The wound was checked for hemostasis which is very carefully ensured. The wound was probed in order to localize any additional tracts or abscess cavities. There were none found. The wound measured 6.5x7.5x9cm. Wound tunnelling present -11.5cm at 6 0 clock, and 11.5cm at 12 0 clock. Wound undermining from 7 o clock to 12 o clock - 7cm distance. The wound was packed with 1 lap pad and compression held to further ensure hemostasis. The lap pad was then removed and a wound VAC applied with the assistance of rotor assembler Tyson. The skin was prepped with skin prep and Mastisol. DuoDERM was applied to the outer edges of the wound where necessary. 1 entire piece of black foam was packed into the wound. Another piece of black foam was bridged from the left hip and partially packed into the wound. A total of 2 pieces of black foam were used. The Tegaderm dressing was then applied in the usual fashi on and wafer applied. The wound VAC was connected and set to -125 mmHg suction. All the foam was seen to compress and there were no leaks. A good seal was achieved. At the end of the case, all sponge, instrument, sharp counts were correct x2. The patient was awoken from anesthesia and transferred to the stretcher in supine position. He was taken to the PACU in stable condition. Patient's girlfriend/primary contact was updated.
[2020-07-23] MEDS ORDERED: VANCOMYCIN 2,000 MG in SODIUM CHLORIDE 0.9% 500 ML 500 ML IV SCH (18:00)
[2020-07-24] MEDS: VANCOMYCIN 1,250 MG in SODIUM CHLORIDE 0.9% 250ML 250 ML IV SCH ×2 (00:52→12:33)
[2020-07-24] MEDS: metroNIDAZOLE/NS 500 MG/100 ML 500 MG/100 ML BAG IV SCH ×3 (08:00→23:24)
[2020-07-24] MEDS: D5W/0.9% NACL 1,000 ML IV SCH ×2 (09:49→23:24)
[2020-07-24] MEDS: cefTRIAXone/NS 2 GM/100 ML 2 GM/100 ML BAG IV SCH (09:50)
--- NOTE | 2020-07-24 09:55 | Progress Note ---
Assessment and Plan 59-year-old male s/p - Excisional debridement, washout of left gluteal/perirectal wound, application of wound vac, POD 1 - Incision, drainage, excisional debridement of left perirectal abscess and necrotizing soft tissue infection, 07/21/20 Wound cultures- beta hemolytic strept group F Plan: 1. Reg diet 2. prn pain control 3. IV abx per ID 4. continue wound vac to -125mmHg suction 5. Wound vac change planned for Monday/Monday. May need to return to OR if cannot tolerate bedside dressing change as wound is quite extensive. 6. Angel for home vac submitted by case management. Vac delivery pending. [facility] angel to be provided to patient so he may follow up in wound care clinic when ready for dc. Thank you for this consultation. Please call with any questions or concerns. Evaluation and treatment of this patient was during the time of the national and state emergency arising from COVID19 coronavirus pandemic. Treatment and procedures performed meet the current and available best practice and guidelines for patient during the COVID pandemic. Subjective Date of service: 07/24/20 Narrative: Pt seen and examined. Afebrile. Pain better. Objective Vital Signs - 12hr 07/23/20 07/24/20 22:00 04:33 Temperature 98.2 F Pulse Rate 87 Respiratory 18 20 Rate Blood Pressure 162/69 O2 Sat by Pulse 97 97 Oximetry - General physical appearance Narrative Exam: Gen: AAOx3. NAD Gluteal/Perirectal - wound vac in place with good seal, no leak. Left buttock soft. - Labs 07/22/20 09:31 07/23/20 07:36
--- NOTE | 2020-07-24 10:12 | Progress Note ---
Assessment and Plan Assessment and plan: -- Left perirectal abscess with necrotizing soft tissue infection Current Visit: Yes Status: Acute S/P[ 07/23/2020 ] repeat excisional debridement, washout of left gluteal/perirectal wound, application of wound vac Wound VAC change on Monday/Monday per surgery Possible excisional debridement as needed, surgery following 07/21/2020 -s/p incision, drainage, excisional debridement of left perirectal abscess and necrotizing soft tissue infection Wound measures: 7cmx 1cmx 9cm with undermining from 5-12o clock The abscess cavity is approximately 25 cm and tracks along the rectum and perineum Continue IV antibiotics vancomycin, Rocephin and Flagyl as recommended by ID Wound care, pain management, Surgery and ID following --Sepsis secondary to left buttock abscess ; Current Visit: Yes Status: Acute Leukocytosis, tachycardia, cultures + beta-hemolytic strep Left buttock/perirectal abscess s/p I&D excisional debridement Repeat excisional debridement and wound VAC placement Continue Vanco , Rocephin and Flagyl per ID, wound care --Ongoing tobacco abuse Current Visit: Yes Status: Acute . Smoking cessation counseling Nicotine patch as needed --Leukocytosis Current Visit: Yes Status: Acute Secondary to rectal abscess Continue antibiotic therapy --Obesity; BMI 34.9 Current Visit: Yes Status: Acute Advised the patient diet modification Exercise as tolerated and weight reduction When medically stable --Severe protein calorie malnutrition/hypoalbuminemia, albumin 2.8 Nutrition supplements and supportive care treat underlying cause, --Full code status Current Visit: Yes Status: Acute Patient is full code --DVT prophylaxis Current Visit: Yes Status: Acute SCD. While resting Increase ambulation upon discharge Hold anticoagulants pending procedure We will closely monitor the patient and adjust management as needed Plan of care reviewed with the patient and his nurse Consults and recommendations noted and appreciated. Patient may need home wound care, home health and wound VAC at discharge Brief history and daily hospital course; 59-year-old male patient was admitted with perirectal abscess evaluated by surgery and patient underwent incision drainage And excisional debridement x 2, with wound VAC, on multiple antibiotics Vanco Flagyl and Rocephin, ID following 07/21/2020; incision drainage of abscess and excisional debridement 07/22/2020; continue antibiotics vancomycin Rocephin and Flagyl per ID 07/23/2020; repeat excisional debridement, wound VAC placement 07/24/2020; cultures beta-hemolytic strep, follow sensitivities, continue antibiotics Wound VAC management, wound care, wound VAC change on Monday/Monday History Interval history: I have seen and examined the patient at the bedside Patient's chart and medications reviewed Patient feels slightly better Complains of some pain at the surgical site Wound VAC is in place Vital signs noted Hospitalist Physical - Constitutional Vitals: Temp Pulse Resp BP Pulse Ox 98.2 F 87 20 162/69 97 07/24/20 04:33 07/24/20 04:33 07/24/20 04:33 07/24/20 04:33 07/24/20 04:33 General appearance: Present: no acute distress, well-nourished, obese - EENT Eyes: Present: PERRL, EOM intact - Neck Neck: Present: supple, normal ROM - Respiratory Respiratory effort: normal Respiratory: bilateral: diminished, negative: rales, rhonchi, wheezing - Cardiovascular Rhythm: regular Heart Sounds: Present: S1 & S2 - Extremities Extremities: no ischemia, No edema - Abdominal General gastrointestinal: soft, non-tender, non-distended, normal bowel sounds - Integumentary Integumentary: Present: clear, warm - Psychiatric Psychiatric: appropriate mood/affect, cooperative - Neurologic Neurologic: moves all extremities Results - Labs CBC & Chem 7: 07/22/20 09:31 07/23/20 07:36 Labs: Laboratory Last Values WBC 15.6 K/mm3 (4.5-11.0) H 07/22/20 09:31 RBC 4.03 M/mm3 (3.65-5.03) 07/22/20 09:31 Hgb 12.1 gm/dl (11.8-15.2) D 07/22/20 09:31 Hct 35.6 % (35.5-45.6) D 07/22/20 09:31 MCV 88 fl (84-94) 07/22/20 09:31 MCH 30 pg (28-32) 07/22/20 09:31 MCHC 34 % (32-34) 07/22/20 09:31 RDW 13.6 % (13.2-15.2) 07/22/20 09:31 Plt Count 207 K/mm3 (140-440) 07/22/20 09:31 Lymph % (Auto) 4.0 % (13.4-35.0) L 07/22/20 09:31 [place] % (Auto) 6.8 % (0.0-7.3) 07/22/20 09:31 Eos % (Auto) 0.0 % (0.0-4.3) 07/22/20 09:31 Baso % (Auto) 0.2 % (0.0-1.8) 07/22/20 09:31 Lymph # (Auto) 0.6 K/mm3 (1.2-5.4) L 07/22/20 09:31 [place] # (Auto) 1.1 K/mm3 (0.0-0.8) H 07/22/20 09:31 Eos # (Auto) 0.0 K/mm3 (0.0-0.4) 07/22/20 09: Baso # (Auto) 0.0 K/mm3 (0.0-0.1) 07/22/20 09:31 Add Manual Diff Complete 07/20/20 19:26 Total Counted 100 07/20/20 19:26 Seg Neutrophils % 89.0 % (40.0-70.0) H 07/22/20 09:31 Seg Neuts % (Manual) 84.0 % (40.0-70.0) H 07/20/20 19:26 Band Neutrophils % 4.0 % 07/20/20 19:26 Lymphocytes % (Manual) 8.0 % (13.4-35.0) L 07/20/20 19:26 Monocytes % (Manual) 4.0 % (0.0-7.3) 07/20/20 19:26 Nucleated RBC % Not Reportable 07/20/20 19:26 Seg Neutrophils # 13.9 K/mm3 (1.8-7.7) H 07/22/20 09:31 Seg Neutrophils # Man 18.4 K/mm3 (1.8-7.7) H 07/20/20 19:26 Band Neutrophils # 0.9 K/mm3 07/20/20 19:26 Lymphocytes # (Manual) 1.8 K/mm3 (1.2-5.4) 07/20/20 19:26 Abs React Lymphs (Man) 0.0 K/mm3 07/20/20 19:26 Monocytes # (Manual) 0.9 K/mm3 (0.0-0.8) H 07/20/20 19:26 Eosinophils # (Manual) 0.0 K/mm3 (0.0-0.4) 07/20/20 19:26 Basophils # (Manual) 0.0 K/mm3 (0.0-0.1) 07/20/20 19:26 Metamyelocytes # 0.0 K/mm3 07/20/20 19:26 Myelocytes # 0.0 K/mm3 07/20/20 19:26 Promyelocytes # 0.0 K/mm3 07/20/20 19:26 Blast Cells # 0.0 K/mm3 07/20/20 19:26 WBC Morphology Not Reportable 07/20/20 19:26 Hypersegmented Neuts Not Reportable 07/20/20 19:26 Hyposegmented Neuts Not Reportable 07/20/20 19:26 Hypogranular Neuts Not Reportable 07/20/20 19:26 Smudge Cells Not Reportable 07/20/20 19:26 Toxic Granulation Not Reportable 07/20/20 19:26 Toxic Vacuolation Not Reportable 07/20/20 19:26 Dohle Bodies Not Reportable 07/20/20 19:26 Pelger-Huet Anomaly Not Reportable 07/20/20 19:26 Steve Rods Not Reportable 07/20/20 19:26 Platelet Estimate Consistent w auto 07/20/20 19:26 Clumped Platelets Not Reportable 07/20/20 19:26 Plt Clumps, EDTA Not Reportable 07/20/20 19:26 Large Platelets Not Reportable 07/20/20 19:26 Giant Platelets Not Reportable 07/20/20 19:26 Platelet Satelliting Not Reportable 07/20/20 19:26 Plt Morphology Comment Not Reportable 07/20/20 19:26 RBC Morphology Normal 07/20/20 19:26 Dimorphic RBCs Not Reportable 07/20/20 19:26 Polychromasia Not Reportable 07/20/20 19:26 Hypochromasia Not Reportable 07/20/20 19:26 Poikilocytosis Not Reportable 07/20/20 19:26 Anisocytosis Not Reportable 07/20/20 19:26 Microcytosis Not Reportable 07/20/20 19:26 Macrocytosis Not Reportable 07/20/20 19:26 Spherocytes Not Reportable 07/20/20 19:26 Pappenheimer Bodies Not Reportable 07/20/20 19:26 Sickle Cells Not Reportable 07/20/20 19:26 Target Cells Not Reportable 07/20/20 19:26 Tear Drop Cells Not Reportable 07/20/20 19:26 Ovalocytes Not Reportable 07/20/20 19:26 Helmet Cells Not Reportable 07/20/20 19:26 Rueda-Alleghany Bodies Not Reportable 07/20/20 19:26 [place] Rings Not Reportable 07/20/20 19:26 [place] Cells Not Reportable 07/20/20 19:26 Bite Cells Not Reportable 07/20/20 19:26 Crenated Cell Not Reportable 07/20/20 19:26 Elliptocytes Not Reportable 07/20/20 19:26 Acanthocytes (Spur) Not Reportable 07/20/20 19:26 Rouleaux Not Reportable 07/20/20 19:26 Hemoglobin C Crystals Not Reportable 07/20/20 19:26 Schistocytes Not Reportable 07/20/20 19:26 Malaria parasites Not Reportable 07/20/20 19:26 Yared Bodies Not Reportable 07/20/20 19:26 Hem Pathologist Commnt No 07/20/20 19:26 Sodium 136 mmol/L (137-145) L 07/23/20 07:36 Potassium 3.7 mmol/L (3.6-5.0) 07/23/20 07:36 Chloride 99.7 mmol/L (98-107) 07/23/20 07:36 Carbon Dioxide 32 mmol/L (22-30) H 07/23/20 07:36 Anion Gap 8 mmol/L 07/23/20 07:36 BUN 18 mg/dL (9-20) 07/23/20 07:36 Creatinine 1.1 mg/dL (0.8-1.3) 07/23/20 07:36 Estimated GFR > 60 ml/min 07/23/20 07:36 BUN/Creatinine Ratio 16 % 07/23/20 07:36 Glucose 182 mg/dL (75-100) H 07/23/20 07:36 Hemoglobin A1c 5.5 % (4-6) 07/21/20 07:52 Calcium 7.9 mg/dL (8.4-10.2) L 07/23/20 07:36 Total Bilirubin 0.60 mg/dL (0.1-1.2) 07/22/20 09:31 AST 31 units/L (5-40) 07/22/20 09:31 ALT 17 units/L (7-56) 07/22/20 09:31 Alkaline Phosphatase 50 units/L (35-129) 07/22/20 09:31 Total Protein 6.1 g/dL (6.3-8.2) L 07/22/20 09:31 Albumin 2.8 g/dL (3.9-5) L 07/22/20 09:31 Albumin/Globulin Ratio 0.8 % 07/22/20 09:31 Microbiology: Microbiology 07/20/20 20:57 Peripheral/Venous Blood Culture - Preliminary NO GROWTH AFTER 72 HOURS 07/20/20 20:57 Peripheral/Venous Blood Culture - Preliminary NO GROWTH AFTER 72 HOURS 07/21/20 Unknown Buttock Anaerobic Culture - Preliminary 07/21/20 Unknown Buttock Surgical Culture - Final Beta Hemolytic Strep Group F Chavez/IV: Voiding Method Urinal Active Medications - Current Medications Current Medications: Generic Name Dose Route Start Last Admin Trade Name Freq PRN Reason Stop Dose Admin Acetaminophen 650 mg 07/21/20 03:10 07/21/20 15:47 Acetaminophen 325 Mg Tab PO 650 mg Q4H PRN Administration Pain MILD(1-3)/Fever >100.5/REYEZ Al Hydrox/Mg Hydrox/Simethicone 30 ml 07/21/20 03:10 Alum-Mag Hydroxide-Simethicone [phone]/5ml Oral Liqd 30 Ml PO Q4H PRN Indigestion Hydralazine HCl 5 mg 07/21/20 07:00 Hydralazine 20 Mg/1 Ml Inj IV Q4HR PRN Hypertension Hydromorphone HCl 0.5 mg 07/21/20 18:00 07/23/20 17:37 Hydromorphone 1 Mg/1 Ml Inj IV 0.5 mg Q3H PRN Administration Pain , Severe (7-10) Metronidazole 500 mg in 100 mls @ 100 mls/hr 07/21/20 08:00 07/24/20 08:00 Flagyl 500 Mg/100 Ml IV 100 mls/hr Q8H EDITH Administration Protocol Ceftriaxone Sodium 2 gm in 100 mls @ 200 mls/hr 07/21/20 13:00 07/24/20 09:50 Rocephin/Ns 2 Gm/100 Ml IV 200 mls/hr Q24HR EDITH Administration Protocol Dextrose/Sodium Chloride 1,000 mls @ 125 mls/hr 07/21/20 14:00 07/24/20 09:49 D5ns IV 125 mls/hr DIRECT EDITH Administration Vancomycin HCl 1,250 mg/ 275 mls @ 166.667 mls/hr 07/23/20 12:00 07/24/20 00:52 Sodium Chloride IV 166.667 mls/hr Q12H EDITH Administration Magnesium Hydroxide 30 ml 07/21/20 03:10 Magnesium Hydroxide (Mom) Oral Liqd Udc PO Q4H PRN Constipation Ondansetron HCl 4 mg 07/21/20 03:10 Ondansetron 4 Mg/2 Ml Inj IV Q8H PRN Nausea And Vomiting Oxycodone/Acetaminophen 2 tab 07/24/20 09:58 Oxycodone /Acetaminophen 5-325mg Tab PO Q4H PRN Pain, Moderate (4-6) Senna 8.6 mg 07/21/20 03:10 Sennosides 8.6 Mg Tab PO Q12HR PRN Constipation Sodium Chloride 10 ml 07/21/20 03:10 07/24/20 09:50 Sodium Chloride 0.9% 10 Ml Flush Syringe IV 10 ml PRN PRN Administration LINE FLUSH Nutrition/Malnutrition Assess - Dietary Evaluation Nutrition/Malnutrition Findings: Nutrition Notes Start: 07/23/20 14:25 Freq: Status: Active Protocol: Document 07/23/20 14:25 (Rec: 07/23/20 14:35 [id number]) Nutrition Notes Need for Assessment generated from: MD Order Initial or Follow up Assessment Other Pertinent Diagnosis L buttock abscess Current Diet NPO Labs/Tests Na 136 Pertinent Medications D5NS at 125 ml/hr Height 5 ft 11 in Weight 113.398 kg [place] Body Weight (kg) 78.18 BMI 34.8 Intake Prior to Admission Poor Weight Status Obese Subjective/Other Information MD order for ONS. Pt with 9cm L buttox abscess. Pt reports not eating well for 2 days [employer] . Pt had carmen and toast this AM. Pt willing to try ONS when diet advanced. Pt going to surgery this afternoon. Pt likely Garth canidate following removal of NPO status. Burn Absent Trauma Absent Current % PO Poor (25-49%) Minimum of two criteria No physical signs of malnutrition #1 Nutrition Diagnosis Increased nutrient needs ( specify in comment below) Comments: protein Etiology wound healing As Evidenced by Signs and Symptoms pt with buttock absess Is patient on ventilator? No Is Patient Ambulatory and/or Out of Bed Yes REE-([place]-ambulatory/OOB) [ 2575.443 [id number]] Kcal/Kg value to use for calculation 18 Approximate Energy Requirements Using 1 kcal/Kg Calculation Used for Recommendations Kcal/kg Additional Notes Protein: (1.25-1.5g/kg AdjBW: 96kg) 120-144g Fluid: 1 ml/kcal Nutrition Intervention Change Diet Order: Advance as able Add Supplement/Snack (indicate name/kcal Ensure High protein TID /protein ) Garth BID Provides kCal: 670 Provides Protein (gm) 53 Goal #1 diet advancement Anticipated Discharge Needs: High protein, Garth BID Follow-Up By: 07/27/20 Additional Comments FU for diet advancement and intakes
[2020-07-24] MEDS ORDERED: oxyCODONE /ACETAMINOPHEN 5-325MG TAB PO PRN (11:00)
--- NOTE | 2020-07-24 11:05 | Progress Note ---
Assessment and Plan Cultures: Blood culture no growth so far. Surgical culture: Group F Strep. A/P: 59-year-old man past medical history hemorrhoids, buttock abscess presents with extensive buttock abscess #L buttock abscess: with deep tracking, s/p initial I&D by surgery. extensive cavity measuring 25cm. Now with wound vac. Planned to exchange wound vac early next week, possibly in OR. #Elevated bilirubin: consider RUQ USS #Obesity Recs: -Continue ceftriaxone/Flagyl -Stopped vancomycin given Strep in wound. -Vac exchange early next next week per surgery. Thank you for the consult, we will continue to follow. Dr. Crawley covering this weekend. Gabriel La MD [facility] ([facility]) O: [phone] F: [phone] Subjective Date of service: 07/24/20 Interval history: Afebrile, returned to OR yesterday. Now with wound vac in place. Objective - Exam Narrative Exam: Physical Exam: Constitutional: Alert, cooperative. No acute distress Head, Ears, Nose: Normocephalic, atraumatic. External ears, nose normal Eyes: Conjunctivae/corneas clear. No icterus. No ptosis. Neck: Supple, no meningeal signs Oral: dentition fair, no thrush Cardiovascular: S1, S2 normal. Respiratory: Good air entry, clear to auscultation bilaterally GI: Soft, non-tender; bowel sounds normal. No peritoneal signs. Musculoskeletal: Buttock wound vac in place. Skin: No rash or abscess Hem/Lymphatic: No palpable cervical or supraclavicular nodes. No lymphangitis Psych: Mood ok. Affect normal Neurological: Awake, alert, oriented. No gross abnormality - Constitutional Vitals: Vital Signs Temp Pulse Resp BP Pulse Ox 98.2 F 87 20 162/69 97 07/24/20 04:33 07/24/20 04:33 07/24/20 04:33 07/24/20 04:33 07/24/20 04:33 Temperature -Last 24 Hours Temperature 98.2 F Temperature 98.3 F Temperature 98.0 F Temperature 97.6 F Temperature 98.5 F - Labs CBC & Chem 7: 07/22/20 09:31 07/23/20 07:36
[2020-07-24] MEDS: KETOROLAC 30 MG/1 ML INJ IV SCH ×2 (12:32→20:21)
[2020-07-25] MEDS: KETOROLAC 30 MG/1 ML INJ IV SCH ×3 (03:28→21:41)
--- NOTE | 2020-07-25 11:52 | Progress Note ---
Assessment and Plan Assessment and Plan -- Left perirectal abscess with necrotizing soft tissue infection Current Visit: Yes Status: Acute 07/21/2020 -s/p incision, drainage, excisional debridement of left perirectal abscess and necrotizing soft tissue infection Wound measures: 7cmx 1cmx 9cm with undermining from 5-12o clock The abscess cavity is approximately 25 cm and tracks along the rectum and perineum Continue IV antibiotics vancomycin, Rocephin and Flagyl as recommended by ID Wound care, pain management, Surgery and ID following S/P[ 07/23/2020 ] repeat excisional debridement, washout of left gluteal/perirectal wound, application of wound vac Wound VAC change on Monday/Monday per surgery Possible excisional debridement as needed, surgery following --Sepsis secondary to left buttock abscess ; Current Visit: Yes Status: Acute Leukocytosis, tachycardia, cultures + beta-hemolytic strep White count is improved from 21.9 thousand to 15.6 thousand Left buttock/perirectal abscess s/p I&D excisional debridement Repeat excisional debridement and wound VAC placement Continue Vanco , Rocephin and Flagyl per ID, wound care --Ongoing tobacco abuse Current Visit: Yes Status: Acute . Smoking cessation counseling Nicotine patch as needed --Leukocytosis Current Visit: Yes Status: Acute Secondary to rectal abscess Continue antibiotic therapy --Obesity; BMI 34.9 Current Visit: Yes Status: Acute Advised the patient diet modification Exercise as tolerated and weight reduction When medically stable --Severe protein calorie malnutrition/hypoalbuminemia, albumin 2.8 Nutrition supplements and supportive care treat underlying cause, --Full code status Current Visit: Yes Status: Acute Patient is full code --DVT prophylaxis Current Visit: Yes Status: Acute SCD. While resting Increase ambulation upon discharge Hold anticoagulants pending procedure We will closely monitor the patient and adjust management as needed Plan of care reviewed with the patient and his nurse Consults and recommendations noted and appreciated. Patient may need home wound care, home health and wound VAC at discharge Subjective Date of service: 07/25/20 Principal diagnosis: Sepsis and perirectal abscess-s/p incision and drainage Interval history: Brief history and daily hospital course; 59-year-old male patient was admitted with perirectal abscess evaluated by surgery and patient underwent incision drainage And excisional debridement x 2, with wound VAC, on multiple antibiotics Vanco Flagyl and Rocephin, ID following 07/21/2020; incision drainage of abscess and excisional debridement 07/22/2020; continue antibiotics vancomycin Rocephin and Flagyl per ID 07/23/2020; repeat excisional debridement, wound VAC placement 07/24/2020; cultures beta-hemolytic strep, follow sensitivities, continue antibiotics Wound VAC management, wound care, wound VAC change on Monday/Monday07/25/2020 Continue wound management and IV antibiotics Wound VAC placement History Interval history: I have seen and examined the patient at the bedside Patient's chart and medications reviewed Patient feels slightly better Complains of some pain at the surgical site Wound VAC is in place Vital signs noted Objective - Constitutional Vitals: Vital Signs - 12hr 07/25/20 07/25/20 03:28 03:58 Respiratory 18 17 Rate General appearance: Present: no acute distress, well-nourished - EENT Eyes: PERRL, EOM intact ENT: hearing intact, clear oral mucosa Ears: bilateral: normal - Neck Neck: supple, normal ROM - Respiratory Respiratory effort: normal Respiratory: bilateral: CTA - Breasts Breasts: normal - Cardiovascular Heart rate: 78 Rhythm: regular Heart Sounds: Present: S1 & S2. Absent: gallop, rub Extremities: pulses intact, No edema, normal color, Full ROM, abnormal (Perirectal abscess) Extremity abnormal: other (Perirectal abscess with drain placed) - Gastrointestinal General gastrointestinal: Present: soft, non-tender, non-distended, normal bowel sounds - Genitourinary Male genitourinary: normal - Integumentary Integumentary: clear, warm, dry - Musculoskeletal Musculoskeletal: 1, strength equal bilaterally - Neurologic Neurologic: moves all extremities - Psychiatric Psychiatric: memory intact, appropriate mood/affect, intact judgment & insight - Labs CBC & Chem 7: 07/22/20 09:31 07/23/20 07:36
[2020-07-25] MEDS: D5W/0.9% NACL 1,000 ML IV SCH ×2 (14:32→23:02)
[2020-07-25] MEDS: metroNIDAZOLE/NS 500 MG/100 ML 500 MG/100 ML BAG IV SCH ×3 (14:33→23:39)
[2020-07-25] MEDS: cefTRIAXone/NS 2 GM/100 ML 2 GM/100 ML BAG IV SCH (14:33)
[2020-07-25] MEDS: hydrALAZINE 20 MG/1 ML INJ IV PRN (23:03)
[2020-07-26] MEDS: KETOROLAC 30 MG/1 ML INJ IV SCH ×3 (05:27→23:26)
[2020-07-26] MEDS: hydrALAZINE 20 MG/1 ML INJ IV PRN ×2 (05:29→23:25)
[2020-07-26 08:37] LABS: Alanine Aminotransferase 15 units/L (7-56); Albumin 2.6 g/dL (3.9-5); BUN/Creatinine Ratio 8; Blood Urea Nitrogen 6 mg/dL (9-20); Hematocrit 36.3 % (35.5-45.6); Hemoglobin 12.5 gm/dl (11.8-15.2); Hemolysis Index 5; Mean Corpuscular HGB Conc 35 % (32-34); Mean Corpuscular Volume 88 fl (84-94); Platelet Count 244 K/mm3 (140-440); Red Blood Count 4.12 M/mm3 (3.65-5.03); Red Cell Distribution Width 13.5 % (13.2-15.2)
[2020-07-26] MEDS: metroNIDAZOLE/NS 500 MG/100 ML 500 MG/100 ML BAG IV SCH ×2 (09:24→18:35)
[2020-07-26] MEDS: D5W/0.9% NACL 1,000 ML IV SCH ×2 (09:25→18:36)
[2020-07-26 11:35] LABS: Total Cells Counted 100
[2020-07-26 11:36] LABS: Platelet Estimate Consistent w Auto; RBC Morphology Normal
[2020-07-26] MEDS: cefTRIAXone/NS 2 GM/100 ML 2 GM/100 ML BAG IV SCH (11:47)
[2020-07-26] MEDS: ARIPiprazole 10 MG TAB PO SCH (18:35)
[2020-07-27] MEDS: metroNIDAZOLE/NS 500 MG/100 ML 500 MG/100 ML BAG IV SCH ×4 (00:57→23:42)
[2020-07-27] MEDS: hydrALAZINE 20 MG/1 ML INJ IV PRN (05:48)
[2020-07-27] MEDS: KETOROLAC 30 MG/1 ML INJ IV SCH ×3 (05:49→21:49)
[2020-07-27] MEDS: D5W/0.9% NACL 1,000 ML IV SCH ×2 (05:51→17:11)
[2020-07-27] MEDS: ARIPiprazole 10 MG TAB PO SCH (10:00)
[2020-07-27] MEDS: cefTRIAXone/NS 2 GM/100 ML 2 GM/100 ML BAG IV SCH (10:00)
--- NOTE | 2020-07-27 10:27 | Progress Note ---
Assessment and Plan Assessment and Plan -- Left perirectal abscess with necrotizing soft tissue infection Current Visit: Yes Status: Acute 07/21/2020 -s/p incision, drainage, excisional debridement of left perirectal abscess and necrotizing soft tissue infection Wound measures: 7cmx 1cmx 9cm with undermining from 5-12o clock The abscess cavity is approximately 25 cm and tracks along the rectum and perineum Continue IV antibiotics vancomycin, Rocephin and Flagyl as recommended by ID Wound care, pain management, Surgery and ID following S/P[ 07/23/2020 ] repeat excisional debridement, washout of left gluteal/perirectal wound, application of wound vac Wound VAC change on Monday/Monday per surgery Possible excisional debridement as needed, surgery following Wound VAC exchange early coming week --Sepsis secondary to left buttock abscess ; Current Visit: Yes Status: Acute Leukocytosis, tachycardia, cultures + beta-hemolytic strep White count is improved from 21.9 thousand to 15.6 thousand Left buttock/perirectal abscess s/p I&D excisional debridement Repeat excisional debridement and wound VAC placement Continue Rocephin and Flagyl per ID, wound care --Ongoing tobacco abuse Current Visit: Yes Status: Acute . Smoking cessation counseling Nicotine patch as needed --Leukocytosis Current Visit: Yes Status: Acute Secondary to rectal abscess Continue antibiotic therapy --Obesity; BMI 34.9 Current Visit: Yes Status: Acute Advised the patient diet modification Exercise as tolerated and weight reduction When medically stable --Severe protein calorie malnutrition/hypoalbuminemia, albumin 2.8 Nutrition supplements and supportive care treat underlying cause, --Full code status Current Visit: Yes Status: Acute Patient is full code --DVT prophylaxis Current Visit: Yes Status: Acute SCD. While resting Increase ambulation upon discharge Hold anticoagulants pending procedure We will closely monitor the patient and adjust management as needed Plan of care reviewed with the patient and his nurse Consults and recommendations noted and appreciated. Patient may need home wound care, home health and wound VAC at discharge Subjective Date of service: 07/26/20 Principal diagnosis: Sepsis and perirectal abscess-s/p incision and drainage Interval history: Brief history and daily hospital course; 59-year-old male patient was admitted with perirectal abscess evaluated by surgery and patient underwent incision drainage And excisional debridement x 2, with wound VAC, on multiple antibiotics Vanco Flagyl and Rocephin, ID following 07/21/2020; incision drainage of abscess and excisional debridement 07/22/2020; continue antibiotics vancomycin Rocephin and Flagyl per ID 07/23/2020; repeat excisional debridement, wound VAC placement 07/24/2020; cultures beta-hemolytic strep, follow sensitivities, continue antibiotics Wound VAC management, wound care, wound VAC change on Monday/Monday07/25/2020 Continue wound management and IV antibiotics Wound VAC placement 07/26/2020 On wound VAC Wound VAC exchange Monday or Monday Discharge plans per surgery and ID History Interval history: I have seen and examined the patient at the bedside Patient's chart and medications reviewed Patient feels slightly better Complains of some pain at the surgical site Wound VAC is in place Vital signs noted Objective - Constitutional Vitals: Vital Signs - 12hr 07/26/20 07/27/20 22:39 04:55 Temperature 99.1 F 98.5 F Pulse Rate 80 78 Respiratory 20 20 Rate Blood Pressure 170/84 Blood Pressure 174/84 [Right] O2 Sat by Pulse 99 98 Oximetry General appearance: Present: no acute distress, well-nourished - EENT Eyes: PERRL, EOM intact ENT: hearing intact, clear oral mucosa Ears: bilateral: normal - Neck Neck: supple, normal ROM - Respiratory Respiratory effort: normal Respiratory: bilateral: CTA - Breasts Breasts: normal - Cardiovascular Rhythm: regular Heart Sounds: Present: S1 & S2. Absent: gallop, rub Extremities: pulses intact, No edema, normal color, Full ROM, abnormal (Perirectal abscess on the left side with wound VAC) Extremity abnormal: other (Perirectal abscess with wound VAC on the left side) - Gastrointestinal General gastrointestinal: Present: soft, non-tender, non-distended, normal bowel sounds - Genitourinary Male genitourinary: normal - Integumentary Integumentary: clear, warm, dry - Musculoskeletal Musculoskeletal: 1, strength equal bilaterally - Neurologic Neurologic: moves all extremities - Psychiatric Psychiatric: memory intact, appropriate mood/affect, intact judgment & insight - Labs CBC & Chem 7: 07/26/20 07:28 07/26/20 07:28 Labs: Abnormal lab results 07/26/20 Range/Units 07:28 Monocytes % (Manual) 13.0 H (0.0-7.3) % Eosinophils % (Manual) 7.0 H (0.0-4.3) %
--- NOTE | 2020-07-27 10:29 | Progress Note ---
Subjective Date of service: 07/27/20 Principal diagnosis: Sepsis and perirectal abscess-s/p incision and drainage Interval history: Brief history and daily hospital course; 59-year-old male patient was admitted with perirectal abscess evaluated by surgery and patient underwent incision drainage And excisional debridement x 2, with wound VAC, on multiple antibiotics Vanco Flagyl and Rocephin, ID following 07/21/2020; incision drainage of abscess and excisional debridement 07/22/2020; continue antibiotics vancomycin Rocephin and Flagyl per ID 07/23/2020; repeat excisional debridement, wound VAC placement 07/24/2020; cultures beta-hemolytic strep, follow sensitivities, continue antibiotics Wound VAC management, wound care, wound VAC change on Monday/Monday07/25/2020 Continue wound management and IV antibiotics Wound VAC placement 07/26/2020 On wound VAC Wound VAC exchange Monday or Monday Discharge plans per surgery and ID 07/27/2020 Wound VAC exchange this week Otherwise comfortable Continue IV antibiotics in the form of ceftriaxone and Flagyl Vancomycin was discontinued Afebrile History Interval history: I have seen and examined the patient at the bedside Patient's chart and medications reviewed Patient feels slightly better Complains of some pain at the surgical site Wound VAC is in place Vital signs noted Objective - Constitutional Vitals: Vital Signs - 12hr 07/26/20 07/27/20 22:39 04:55 Temperature 99.1 F 98.5 F Pulse Rate 80 78 Respiratory 20 20 Rate Blood Pressure 170/84 Blood Pressure 174/84 [Right] O2 Sat by Pulse 99 98 Oximetry General appearance: Present: no acute distress, well-nourished - EENT Eyes: PERRL, EOM intact ENT: hearing intact, clear oral mucosa Ears: bilateral: normal - Neck Neck: supple, normal ROM - Respiratory Respiratory effort: normal Respiratory: bilateral: CTA - Breasts Breasts: normal - Cardiovascular Heart rate: 78 Rhythm: regular Heart Sounds: Present: S1 & S2. Absent: gallop, rub Extremities: pulses intact, No edema, normal color, Full ROM, abnormal (Perirectal abscess-s/p excision and drainage and wound VAC in place) Extremity abnormal: other (Perirectal abscess-s/p excision and drainage, wound VAC in place) - Gastrointestinal General gastrointestinal: Present: soft, non-tender, non-distended, normal bowel sounds - Genitourinary Male genitourinary: normal - Integumentary Integumentary: clear, warm, dry - Musculoskeletal Musculoskeletal: 1, strength equal bilaterally - Neurologic Neurologic: moves all extremities - Psychiatric Psychiatric: memory intact, appropriate mood/affect, intact judgment & insight - Labs CBC & Chem 7: 07/26/20 07:28 07/26/20 07:28 Labs: Abnormal lab results 07/26/20 Range/Units 07:28 Monocytes % (Manual) 13.0 H (0.0-7.3) % Eosinophils % (Manual) 7.0 H (0.0-4.3) %
--- NOTE | 2020-07-27 12:06 | Progress Note ---
Assessment and Plan Cultures: Blood culture no growth so far. Surgical culture: Group F Strep. A/P: 59-year-old man past medical history hemorrhoids, buttock abscess presents with extensive buttock abscess #L buttock abscess: with deep tracking, s/p initial I&D by surgery. extensive cavity measuring 25cm. Now with wound vac. Planned to exchange wound vac early next week, possibly in OR. #Elevated bilirubin: normalized now. #Obesity Recs: -Continue ceftriaxone/Flagyl -Vac exchange early next next week per surgery. -Plan on DC with PO antibiotics, likely Augmentin for 7-10 days. Thank you for the consult, we will continue to follow. Gabriel La MD [facility] ([facility]) O: [phone] F: [phone] Subjective Date of service: 07/27/20 Principal diagnosis: Sepsis and perirectal abscess-s/p incision and drainage Interval history: Afebrile, normalized white count now. Cultures finalized with group F strep. Objective - Exam Narrative Exam: Physical Exam: Constitutional: Alert, cooperative. No acute distress Head, Ears, Nose: Normocephalic, atraumatic. External ears, nose normal Eyes: Conjunctivae/corneas clear. No icterus. No ptosis. Neck: Supple, no meningeal signs Oral: dentition fair, no thrush Cardiovascular: S1, S2 normal. Respiratory: Good air entry, clear to auscultation bilaterally GI: Soft, non-tender; bowel sounds normal. No peritoneal signs. Musculoskeletal: Buttock wound vac in place. Skin: No rash or abscess Hem/Lymphatic: No palpable cervical or supraclavicular nodes. No lymphangitis Psych: Mood ok. Affect normal Neurological: Awake, alert, oriented. No gross abnormality - Constitutional Vitals: Vital Signs Temp Pulse Resp BP Pulse Ox 98.2 F 93 H 22 188/94 99 07/27/20 11:22 07/27/20 11:22 07/27/20 11:22 07/27/20 11:22 07/27/20 11:22 Temperature -Last 24 Hours Temperature 98.2 F Temperature 98.5 F Temperature 99.1 F Temperature 97.6 F Temperature 97.8 F - Labs CBC & Chem 7: 07/26/20 07:28 07/26/20 07:28
--- NOTE | 2020-07-27 13:11 | Progress Note ---
Assessment and Plan 59-year-old male s/p - Excisional debridement, washout of left gluteal/perirectal wound, application of wound vac, POD 4 - Incision, drainage, excisional debridement of left perirectal abscess and necrotizing soft tissue infection, 07/21/20 Wound cultures- beta hemolytic strept group F Plan: 1. Reg diet 2. prn pain control 3. abx per ID 4. continue wound vac to -125mmHg suction 5. Wound vac change planned Monday at bedside with fabric worker foreman. May need to return to OR if cannot tolerate bedside dressing change as wound is quite exten sive. 6. Home wound vac delivered to patient's room 7. Awaiting arrangement for [facility] and wound care clinic follow up upon dc. Please call with any questions or concerns. Evaluation and treatment of this patient was during the time of the national and state emergency arising from COVID19 coronavirus pandemic. Treatment and procedures performed meet the current and available best practice and guidelines for patient during the COVID pandemic. Subjective Date of service: 07/27/20 Narrative: Pt seen and examined. No acute complaints. Afebrile. Objective Vital Signs - 12hr 07/27/20 07/27/20 04:55 11:22 Temperature 98.5 F 98.2 F Pulse Rate 78 93 H Respiratory 20 22 Rate Blood Pressure 188/94 Blood Pressure 174/84 [Right] O2 Sat by Pulse 98 99 Oximetry - General physical appearance Narrative Exam: Gen: AAOx3. NAD CV: S1, S2+ Resp; even and unlabored Gluteal: wound vac in place with good seal and no leak - seropurulent fluid in canister - Labs 07/26/20 07:28 07/26/20 07:28
[2020-07-28] MEDS: D5W/0.9% NACL 1,000 ML IV SCH (03:05)
[2020-07-28] MEDS: KETOROLAC 30 MG/1 ML INJ IV SCH ×2 (03:05→12:22)
[2020-07-28] MEDS: hydrALAZINE 20 MG/1 ML INJ IV PRN ×2 (07:09→13:48)
[2020-07-28] MEDS ORDERED: LORazepam 2 MG/ML VIAL IV NR (09:23)
[2020-07-28] MEDS ORDERED: HYDROmorphone 2 MG/1 ML INJ IV ONE (09:23)
[2020-07-28] MEDS ORDERED: HYDROmorphone 1 MG/1 ML INJ IV NR ×2 (10:00)
[2020-07-28] MEDS: ARIPiprazole 10 MG TAB PO SCH (10:26)
[2020-07-28] MEDS: cefTRIAXone/NS 2 GM/100 ML 2 GM/100 ML BAG IV SCH (10:26)
[2020-07-28] MEDS: metroNIDAZOLE/NS 500 MG/100 ML 500 MG/100 ML BAG IV SCH ×2 (10:26→16:51)
--- NOTE | 2020-07-28 11:51 | Progress Note ---
Assessment and Plan Cultures: Blood culture no growth so far. Surgical culture: Group F Strep. A/P: 59-year-old man past medical history hemorrhoids, buttock abscess presents with extensive buttock abscess #L buttock abscess: with deep tracking, s/p initial I&D by surgery. extensive cavity measuring 25cm. Now with wound vac. Planned to exchange wound vac early next week, possibly in OR. #Elevated bilirubin: normalized now. #Obesity Recs: -Continue ceftriaxone/Flagyl -Vac exchange today bedside vs OR based on patient pain tolerance. -Plan on DC with PO antibiotics, Augmentin 875/125mg q12h for 10 days. Thank you for the consult, we will continue to follow. Gabriel La MD [facility] ([facility]) O: [phone] F: [phone] Subjective Date of service: 07/28/20 Principal diagnosis: Sepsis and perirectal abscess-s/p incision and drainage Interval history: Afebrile, no change. Objective - Exam Narrative Exam: Physical Exam: Constitutional: Alert, cooperative. No acute distress Head, Ears, Nose: Normocephalic, atraumatic. External ears, nose normal Eyes: Conjunctivae/corneas clear. No icterus. No ptosis. Neck: Supple, no meningeal signs Oral: dentition fair, no thrush Cardiovascular: S1, S2 normal. Respiratory: Good air entry, clear to auscultation bilaterally GI: Soft, non-tender; bowel sounds normal. No peritoneal signs. Musculoskeletal: Buttock wound vac in place. Skin: No rash or abscess Hem/Lymphatic: No palpable cervical or supraclavicular nodes. Psych: Mood ok. Affect normal Neurological: Awake, alert, oriented. No gross abnormality - Constitutional Vitals: Vital Signs Temp Pulse Resp BP Pulse Ox 98.0 F 84 20 188/91 96 07/28/20 05:09 07/28/20 07:09 07/28/20 05:09 07/28/20 07:09 07/28/20 05:09 Temperature -Last 24 Hours Temperature 98.0 F Temperature 98.4 F Temperature 98.2 F - Labs CBC & Chem 7: 07/26/20 07:28 07/26/20 07:28
--- NOTE | 2020-07-28 12:18 | Progress Note ---
Assessment and Plan 59-year-old male s/p - Excisional debridement, washout of left gluteal/perirectal wound, application of wound vac, POD 5 - Incision, drainage, excisional debridement of left perirectal abscess and necrotizing soft tissue infection, 07/21/20 Wound cultures- beta hemolytic strept group F Plan: 1. Reg diet 2. prn pain control 3. abx per ID - recs for augmentin on dc 4. continue wound vac to -125mmHg suction 5. Home wound vac and supplies delivered to patient's room 6. Per notes, HHC and wound care follow up established. home care physical therapist to make appointment for patient to follow up in wound clinic on Monday for vac change. 7. OK to dc home from surgery standpoint. D/W Dr. Lundberg. Please call with any questions or concerns. Evaluation and treatment of this patient was during the time of the national and state emergency arising from COVID19 coronavirus pandemic. Treatment and procedures performed meet the current and available best practice and guidelines for patient during the COVID pandemic. Subjective Date of service: 07/28/20 Narrative: Pt seen and examined. No acute complaints. Tolerated wound vac change at bedside - Discussed with slab installer - wound is clean without odor. No pain. No f/c. Objective Vital Signs - 12hr 07/28/20 07/28/20 05:09 07:09 Temperature 98.0 F Pulse Rate 84 84 Respiratory 20 Rate Blood Pressure 188/91 188/91 O2 Sat by Pulse 96 Oximetry - General physical appearance Narrative Exam: Gen; AAOx3. NAD Gluteal: vac in place with good seal and no leak, serosang drainage in tubing. - Labs 07/26/20 07:28 07/26/20 07:28
--- NOTE | 2020-07-28 13:34 | Progress Note ---
Assessment and Plan Assessment and plan: -- Left perirectal abscess with necrotizing soft tissue infection Current Visit: Yes Status: Acute S/P[ 07/23/2020 ] repeat excisional debridement, washout of left gluteal/perirectal wound, application of wound vac Wound VAC change on Monday/Monday per surgery Possible excisional debridement as needed, surgery following 07/21/2020 -s/p incision, drainage, excisional debridement of left perirectal abscess and necrotizing soft tissue infection Wound measures: 7cmx 1cmx 9cm with undermining from 5-12o clock The abscess cavity is approximately 25 cm and tracks along the rectum and perineum Continue IV antibiotics vancomycin, Rocephin and Flagyl as recommended by ID Wound care, pain management, Surgery and ID following --Sepsis secondary to left buttock abscess ; Current Visit: Yes Status: Acute Leukocytosis, tachycardia, cultures + beta-hemolytic strep Left buttock/perirectal abscess s/p I&D excisional debridement Repeat excisional debridement and wound VAC placement Continue Vanco , Rocephin and Flagyl per ID, wound care --Ongoing tobacco abuse Current Visit: Yes Status: Acute . Smoking cessation counseling Nicotine patch as needed --Leukocytosis Current Visit: Yes Status: Acute Secondary to rectal abscess Continue antibiotic therapy --Obesity; BMI 34.9 Current Visit: Yes Status: Acute Advised the patient diet modification Exercise as tolerated and weight reduction When medically stable --Severe protein calorie malnutrition/hypoalbuminemia, albumin 2.8 Nutrition supplements and supportive care treat underlying cause, History Interval history: I have seen and examined the patient at the bedside Hospitalist Physical - Constitutional Vitals: Temp Pulse Resp BP Pulse Ox 98.0 F 84 20 188/91 96 07/28/20 05:09 07/28/20 07:09 07/28/20 05:09 07/28/20 07:09 07/28/20 05:09 General appearance: Present: no acute distress, well-nourished Results - Labs CBC & Chem 7: 07/26/20 07:28 07/26/20 07:28 Labs: Laboratory Last Values WBC 5.7 K/mm3 (4.5-11.0) 07/26/20 07:28 RBC 4.12 M/mm3 (3.65-5.03) 07/26/20 07:28 Hgb 12.5 gm/dl (11.8-15.2) 07/26/20 07:28 Hct 36.3 % (35.5-45.6) 07/26/20 07:28 MCV 88 fl (84-94) 07/26/20 07:28 MCH 30 pg (28-32) 07/26/20 07:28 MCHC 35 % (32-34) H 07/26/20 07:28 RDW 13.5 % (13.2-15.2) 07/26/20 07:28 Plt Count 244 K/mm3 (140-440) 07/26/20 07:28 Lymph % (Auto) 4.0 % (13.4-35.0) L 07/22/20 09:31 [place] % (Auto) Felt Dyeing Machine Tender 07/26/20 07:28 Eos % (Auto) 0.0 % (0.0-4.3) 07/22/20 09:31 Baso % (Auto) 0.2 % (0.0-1.8) 07/22/20 09:31 Lymph # (Auto) 0.6 K/mm3 (1.2-5.4) L 07/22/20 09:31 Deuel # (Auto) 1.1 K/mm3 (0.0-0.8) H 07/22/20 09:31 Eos # (Auto) 0.0 K/mm3 (0.0-0.4) 07/22/20 09:31 Baso # (Auto) 0.0 K/mm3 (0.0-0.1) 07/22/20 09:31 Add Manual Diff Complete 07/26/20 07:28 Total Counted 100 07/26/20 07:28 Seg Neutrophils % 89.0 % (40.0-70.0) H 07/22/20 09:31 Seg Neuts % (Manual) 54.0 % (40.0-70.0) 07/26/20 07:28 Band Neutrophils % 4.0 % 07/20/20 19:26 Lymphocytes % (Manual) 21.0 % (13.4-35.0) 07/26/20 07:28 Reactive Lymphs % (Man) 2.0 % 07/26/20 07:28 Monocytes % (Manual) 13.0 % (0.0-7.3) H 07/26/20 07:28 Eosinophils % (Manual) 7.0 % (0.0-4.3) H 07/26/20 07:28 Metamyelocytes % 3.0 % 07/26/20 07:28 Nucleated RBC % Not Reportable 07/26/20 07:28 Seg Neutrophils # 13.9 K/mm3 (1.8-7.7) H 07/22/20 09:31 Seg Neutrophils # Man 3.1 K/mm3 (1.8-7.7) 07/26/20 07:28 Band Neutrophils # 0.0 K/mm3 07/26/20 07:28 Lymphocytes # (Manual) 1.2 K/mm3 (1.2-5.4) 07/26/20 07:28 Abs React Lymphs (Man) 0.1 K/mm3 07/26/20 07:28 Monocytes # (Manual) 0.7 K/mm3 (0.0-0.8) 07/26/20 07:28 Eosinophils # (Manual) 0.4 K/mm3 (0.0-0.4) 07/26/20 07:28 Basophils # (Manual) 0.0 K/mm3 (0.0-0.1) 07/26/20 07:28 Metamyelocytes # 0.2 K/mm3 07/26/20 07:28 Myelocytes # 0.0 K/mm3 07/26/20 07:28 Promyelocytes # 0.0 K/mm3 07/26/20 07:28 Blast Cells # 0.0 K/mm3 07/26/20 07:28 WBC Morphology Not Reportable 07/26/20 07:28 WBC Morphology TNR 07/26/20 07:28 Hypersegmented Neuts Not Reportable 07/26/20 07:28 Hyposegmented Neuts Not Reportable 07/26/20 07:28 Hypogranular Neuts Not Reportable 07/26/20 07:28 Smudge Cells Not Reportable 07/26/20 07:28 Toxic Granulation Not Reportable 07/26/20 07:28 Toxic Vacuolation Not Reportable 07/26/20 07:28 Dohle Bodies Not Reportable 07/26/20 07:28 Pelger-Huet Anomaly Not Reportable 07/26/20 07:28 Steve Rods Not Reportable 07/26/20 07:28 Platelet Estimate Consistent w auto 07/26/20 07:28 Clumped Platelets Not Reportable 07/26/20 07:28 Plt Clumps, EDTA Not Reportable 07/26/20 07:28 Large Platelets Not Reportable 07/26/20 07:28 Giant Platelets Not Reportable 07/26/20 07:28 Platelet Satelliting Not Reportable 07/26/20 07:28 Plt Morphology Comment Not Reportable 07/26/20 07:28 RBC Morphology Normal 07/26/20 07:28 Dimorphic RBCs Not Reportable 07/26/20 07:28 Polychromasia Not Reportable 07/26/20 07:28 Hypochromasia Not Reportable 07/26/20 07:28 Poikilocytosis Not Reportable 07/26/20 07:28 Anisocytosis Not Reportable 07/26/20 07:28 Microcytosis Not Reportable 07/26/20 07:28 Macrocytosis Not Reportable 07/26/20 07:28 Spherocytes Not Reportable 07/26/20 07:28 Pappenheimer Bodies Not Reportable 07/26/20 07:28 Sickle Cells Not Reportable 07/26/20 07:28 Target Cells Not Reportable 07/26/20 07:28 Tear Drop Cells Not Reportable 07/26/20 07:28 Ovalocytes Not Reportable 07/26/20 07:28 Helmet Cells Not Reportable 07/26/20 07:28 [place] Bodies Not Reportable 07/26/20 07:28 [place] Rings Not Reportable 07/26/20 07:28 [place] Cells Not Reportable 07/26/20 07:28 Bite Cells Not Reportable 07/26/20 07:28 Crenated Cell Not Reportable 07/26/20 07:28 Elliptocytes Not Reportable 07/26/20 07:28 Acanthocytes (Spur) Not Reportable 07/26/20 07:28 Rouleaux Not Reportable 07/26/20 07:28 Hemoglobin C Crystals Not Reportable 07/26/20 07:28 Schistocytes Not Reportable 07/26/20 07:28 Malaria parasites Not Reportable 07/26/20 07:28 Yared Bodies Not Reportable 07/26/20 07:28 Hem Pathologist Commnt No 07/26/20 07:28 Sodium 139 mmol/L (137-145) 07/26/20 07:28 Potassium 3.2 mmol/L (3.6-5.0) L 07/26/20 07:28 Chloride 102.3 mmol/L (98-107) 07/26/20 07:28 Carbon Dioxide 29 mmol/L (22-30) 07/26/20 07:28 Anion Gap 11 mmol/L 07/26/20 07:28 BUN 6 mg/dL (9-20) L 07/26/20 07:28 Creatinine 0.8 mg/dL (0.8-1.3) 07/26/20 07:28 Estimated GFR > 60 ml/min 07/26/20 07:28 BUN/Creatinine Ratio 8 % 07/26/20 07:28 Glucose 109 mg/dL (75-100) H 07/26/20 07:28 POC Glucose 104 mg/dL (70-105) 07/27/20 11:19 Hemoglobin A1c 5.5 % (4-6) 07/21/20 07:52 Calcium 8.0 mg/dL (8.4-10.2) L 07/26/20 07:28 Total Bilirubin 0.30 mg/dL (0.1-1.2) 07/26/20 07:28 AST 19 units/L (5-40) 07/26/20 07:28 ALT 15 units/L (7-56) 07/26/20 07:28 Alkaline Phosphatase 39 units/L (35-129) 07/26/20 07:28 Total Protein 5.6 g/dL (6.3-8.2) L 07/26/20 07:28 Albumin 2.6 g/dL (3.9-5) L 07/26/20 07:28 Albumin/Globulin Ratio 0.9 % 07/26/20 07:28 Microbiology: Microbiology 07/21/20 Unknown Buttock Anaerobic Culture - Final Chavez/IV: Voiding Method Urinal Active Medications - Current Medications Current Medications: Generic Name Dose Route Start Last Admin Trade Name Freq PRN Reason Stop Dose Admin Acetaminophen 650 mg 07/21/20 03:10 07/21/20 15:47 Acetaminophen 325 Mg Tab PO 650 mg Q4H PRN Administration Pain MILD(1-3)/Fever >100.5/REYEZ Al Hydrox/Mg Hydrox/Simethicone 30 ml 07/21/20 03:10 Alum-Mag Hydroxide-Simethicone 146-419-86ol/5ml Oral Liqd 30 Ml PO Q4H PRN Indigestion Aripiprazole 10 mg 07/26/20 18:00 07/28/20 10:26 Aripiprazole 10 Mg Tab PO 10 mg QDAY EDITH Administration Hydralazine HCl 5 mg 07/21/20 07:00 07/28/20 07:09 Hydralazine 20 Mg/1 Ml Inj IV 5 mg Q4HR PRN Administration Hypertension Hydromorphone HCl 0.5 mg 07/21/20 18:00 07/23/20 17:37 Hydromorphone 1 Mg/1 Ml Inj IV 0.5 mg Q3H PRN Administration Pain , Severe (7-10) Metronidazole 500 mg in 100 mls @ 100 mls/hr 07/21/20 08:00 07/28/20 10:26 Flagyl 500 Mg/100 Ml IV 100 mls/hr Q8H EDITH Administration Protocol Ceftriaxone Sodium 2 gm in 100 mls @ 200 mls/hr 07/21/20 13:00 07/28/20 10:26 Rocephin/Ns 2 Gm/100 Ml IV 200 mls/hr Q24HR EDITH Administration Protocol Ketorolac Tromethamine 30 mg 07/24/20 11:00 07/28/20 12:22 Ketorolac 30 Mg/1 Ml Inj IV 07/29/20 10:59 30 mg Q8H EDITH Administration Magnesium Hydroxide 30 ml 07/21/20 03:10 Magnesium Hydroxide (Mom) Oral Liqd Udc PO Q4H PRN Constipation Ondansetron HCl 4 mg 07/21/20 03:10 Ondansetron 4 Mg/2 Ml Inj IV Q8H PRN Nausea And Vomiting Oxycodone/Acetaminophen 2 tab 07/24/20 11:00 Oxycodone /Acetaminophen 5-325mg Tab PO Q4H PRN Pain, Moderate (4-6) Senna 8.6 mg 07/21/20 03:10 Sennosides 8.6 Mg Tab PO Q12HR PRN Constipation Sodium Chloride 10 ml 07/21/20 03:10 07/27/20 21:51 Sodium Chloride 0.9% 10 Ml Flush Syringe IV 10 ml PRN PRN Administration LINE FLUSH Nutrition/Malnutrition Assess - Dietary Evaluation Nutrition/Malnutrition Findings: Nutrition Notes Start: 07/23/20 14:25 Freq: Status: Active Protocol: Document 07/27/20 12:33 (Rec: 07/27/20 12:36 [id number]) Nutrition Notes Initial or Follow up Reassessment Other Pertinent Diagnosis L buttock abscess Current Diet Regular Labs/Tests K 3.2 Pertinent Medications D5NS at 125 ml/hr Height 5 ft 11 in Weight 118.5 kg Cando Body Weight (kg) 78.18 BMI 36.4 Weight Status Obese Subjective/Other Information FU for intakes. Pt reports eating 50% of meals and 100% of ONS. Encouraged pt to eat protein sources for wound healing. Pt open to Garth. Percent of energy/protein needs met: 92%/70% Burn Absent Trauma Absent Current % PO Poor (25-49%) Minimum of two criteria No physical signs of malnutrition #1 Nutrition Diagnosis Increased nutrient needs ( specify in comment below) Diagnosis Progress(for reassessment Continues documentation) Is patient on ventilator? No Is Patient Ambulatory and/or Out of Bed Yes REE-([facility]-ambulatory/OOB) [ 2641.769 [id number]] Kcal/Kg value to use for calculation 17 Approximate Energy Requirements Using 2015 kcal/Kg Calculation Used for Recommendations Kcal/kg Additional Notes Protein: (1.25-1.5g/kg AdjBW: 96kg) 120-144g Fluid: 1 ml/kcal Nutrition Intervention Change Diet Order: Continue Add Supplement/Snack (indicate name/kcal Ensure Enlive TID /protein ) Garth BID Provides kCal: 1,050 Provides Protein (gm) 65 Goal #1 Meet at least 75% of protein and energy needs via PO and ONS intakes Anticipated Discharge Needs: High protein, Garth BID Follow-Up By: 07/29/20 Additional Comments FU for stable intakes and ONS tolerance
--- NOTE | 2020-07-28 13:35 | Discharge Summary ---
Providers - Providers Date of Admission: 07/21/20 08:25 Date of discharge: 07/28/20 Attending physician: LISA PÉREZ 07/21/20 03:19 Consult to Physician [CONS] Routine Comment: Consulting Provider: LIZBETH SINGH Physician Instructions: Reason For Exam: rectal abscess 07/21/20 04:34 Consult to Physician [CONS] Stat Comment: Consulting Provider: RAKEL DUMAS Physician Instructions: Reason For Exam: rectal abscess 07/23/20 10:22 Consult to Wound/ET Nurse [CONS] Routine Reason For Exam: wound eval - perirectal wound s/p surgery 07/23/20 10:38 Consult to Case Management [CONS] Routine Services Needed at Discharge: Wound Vac Home Health Services Notified:: Kati Was contact made?: Yes Primary care physician: DECKHAND SPONGE BOAT Hospitalization Reason for admission: Perianal abscess/sepsis Condition: Stable Pertinent studies: CT pelvis Procedures: S/P[ 07/23/2020 ] repeat excisional debridement, washout of left gluteal/perirectal wound, application of wound vac x 2 Hospital course: -- Left perirectal abscess with necrotizing soft tissue infection Current Visit: Yes Status: Acute S/P[ 07/23/2020 ] repeat excisional debridement, washout of left gluteal/perirectal wound, application of wound vac Wound VAC change on Monday/Monday per surgery Wound VAC changed today, surgery cleared for discharge 07/21/2020 -s/p incision, drainage, excisional debridement of left perirectal abscess and necrotizing soft tissue infection Wound measures: 7cmx 1cmx 9cm with undermining from 5-12o clock The abscess cavity is approximately 25 cm and tracks along the rectum and perineum Continue IV antibiotics vancomycin, Rocephin and Flagyl as recommended by ID Wound care, pain management, Surgery and ID following --Sepsis secondary to left buttock abscess ; Current Visit: Yes Status: Acute Leukocytosis, tachycardia, cultures + beta-hemolytic strep Left buttock/perirectal abscess s/p I&D excisional debridement Repeat excisional debridement and wound VAC placement Continue Vanco , Rocephin and Flagyl per ID, wound care --Ongoing tobacco abuse Current Visit: Yes Status: Acute . Smoking cessation counseling Nicotine patch as needed --Leukocytosis Current Visit: Yes Status: Acute Secondary to rectal abscess Continue antibiotic therapy --Obesity; BMI 34.9 Current Visit: Yes Status: Acute Advised the patient diet modification Exercise as tolerated and weight reduction When medically stable --Severe protein calorie malnutrition/hypoalbuminemia, albumin 2.8 Nutrition supplements and supportive care treat underlying cause, Wound VAC changed today, surgery evaluated the patient Cleared for discharge and follow-up wound care on 07/31/2020 Patient is stable at discharge Disposition: [id number]-06 HOME UNDER HOME [facility] Final Discharge Diagnosis (Prints w/discharge instructions): Sepsis secondary to left perirectal abscess. Left perirectal abscess with necrotizing soft tissue infection. s/p incision drainage excisional debridementx2. Leukocytosis. Obesity BMI 34.9. Severe protein calorie malnutrition. Ongoing tobacco use Time spent for discharge: 35 min Core Measure Documentation - Palliative Care Palliative Care/ Comfort Measures: Not Applicable - Core Measures Any of the following diagnoses?: none Exam - Constitutional Vitals: Temp Pulse Resp BP Pulse Ox 98.0 F 84 20 188/91 96 07/28/20 05:07/28/20 07:07/28/20 05:07/28/20 07:07/28/20 05:09 General appearance: Present: no acute distress, well-nourished - EENT Eyes: Present: PERRL, EOM intact - Neck Neck: Present: supple, normal ROM - Respiratory Respiratory effort: normal Respiratory: bilateral: diminished, negative: rales, rhonchi, wheezing - Cardiovascular Rhythm: regular Heart Sounds: Present: S1 & S2 - Extremities Extremities: no ischemia, No edema - Abdominal General gastrointestinal: Present: soft, non-tender, non-distended, normal bowel sounds - Integumentary Integumentary: Present: clear, warm - Musculoskeletal Musculoskeletal: strength equal bilaterally, generalized weakness - Psychiatric Psychiatric: appropriate mood/affect, cooperative - Neurologic Neurologic: moves all extremities Plan Activity: advance as tolerated Diet: regular Additional Instructions: Advised to follow wound clinic on 07/31/2020. Follow primary care physician 5 to 7 days. Follow surgeon 1 to 2 weeks. Follow ID in 2 weeks. If you have worsening symptoms contact MD or go to emergency room as needed Follow up with: PRIMARY CARE, [Primary Care Provider] - 7 Days LIZBETH SINGH DO [Staff Physician] - 07/31/20 RAKEL DUMAS MD [Staff Physician] - 14 Days Prescriptions: Amoxicillin/Potassium Clav [Augmentin 875-125 Tablet] 1 each PO Q12H 10 Days #20 tablet oxyCODONE /ACETAMINOPHEN [Percocet 5/325] 1 tab PO Q6HR PRN #20 tablet PRN Reason: Pain Sennosides Tab [Senokot] 8.6 mg PO Q12HR PRN #20 tablet PRN Reason: Constipation Ketorolac [Toradol] 10 mg PO Q6H PRN #20 tablet PRN Reason: Pain
[2020-07-28 13:48] VITALS: BP 170/82
== END 2020-07-28 17:40 | disposition home health service (06) | DRG 853 ==
LOC: ED 15:46 → 3A 07-21 01:29 → OBSVTOIN 07-21 08:25
PROVIDERS: ADMIT Internal Medicine Geriatric Medicine; ATTEND Internal Medicine
PROC: 0J990ZZ Drainage of Buttock Subcutaneous Tissue and Fascia, Open Approach (ICD-10-PCS; principal; 2020-07-21)
PROC: 0JB90ZZ Excision of Buttock Subcutaneous Tissue and Fascia, Open Approach (ICD-10-PCS; 2020-07-21)
PROC: 0JB90ZZ Excision of Buttock Subcutaneous Tissue and Fascia, Open Approach (ICD-10-PCS; 2020-07-23)
DX: A41.9 Sepsis, unspecified organism (principal); E43 Unspecified severe protein-calorie malnutrition; L02.31 Cutaneous abscess of buttock; K61.1 Rectal abscess; D72.829 Elevated white blood cell count, unspecified; E88.09 Other disorders of plasma-protein metabolism, not elsewhere classified; E66.9 Obesity, unspecified; F17.210 Nicotine dependence, cigarettes, uncomplicated; M19.90 Unspecified osteoarthritis, unspecified site; Z71.6 Tobacco abuse counseling; Z68.34 Body mass index [BMI] 34.0-34.9, adult; Z79.899 Other long term (current) drug therapy; Z79.891 Long term (current) use of opiate analgesic; Z79.01 Long term (current) use of anticoagulants
CPT/HCPCS: 36415; 72193; 76705; 80048; 80053; 82962; 83036; 85007; 85025; 87040; 87075; 87116; 96365; 96366; 96367; 96375; G0378; J0360; J0696; J1100; J1170; J1885; J1956; J2060; J2250; J2270; J2405; J2704; J2710; J3010; J3370; J3490; J7040; J7042; J7050; J7120; Q9967

== ENCOUNTER 2020-07-31 10:18 | Outpatient (CLI) | payer OTHER, SELFPAY | END 2020-07-31 10:19 | disposition home or self-care (01) | LOC: WOUND 10:18 | PROVIDERS: ATTEND Surgery | DX: T81.89XA Other complications of procedures, not elsewhere classified, initial encounter (principal); Z87.891 Personal history of nicotine dependence; Y83.9 Surgical procedure, unspecified as the cause of abnormal reaction of the patient, or of later complication, without mention of misadventure at the time of the procedure; Y92.238 Other place in hospital as the place of occurrence of the external cause | CPT/HCPCS: 97605; G0463; 99214 ==

== ENCOUNTER 2020-08-03 10:36 | Outpatient (CLI) | payer OTHER, SELFPAY | END 2020-08-03 10:37 | disposition home or self-care (01) | LOC: WOUND 10:36 | PROVIDERS: ATTEND Surgery | DX: T81.89XD Other complications of procedures, not elsewhere classified, subsequent encounter (principal); Z87.891 Personal history of nicotine dependence; Y83.8 Other surgical procedures as the cause of abnormal reaction of the patient, or of later complication, without mention of misadventure at the time of the procedure | CPT/HCPCS: 97605 ==

== ENCOUNTER 2020-08-06 09:03 | Outpatient (CLI) | payer OTHER, SELFPAY | END 2020-08-06 09:04 | disposition home or self-care (01) | LOC: WOUND 09:03 | PROVIDERS: ATTEND Surgery | DX: T81.89XD Other complications of procedures, not elsewhere classified, subsequent encounter (principal); Z87.891 Personal history of nicotine dependence; Y83.8 Other surgical procedures as the cause of abnormal reaction of the patient, or of later complication, without mention of misadventure at the time of the procedure | CPT/HCPCS: 97605 ==

== ENCOUNTER 2020-08-10 10:34 | Outpatient (CLI) | payer OTHER, SELFPAY ==
[2020-08-10] MEDS ORDERED: LIDOCAINE (4%) 40 MG/ML TOPICAL SOLN 50 ML BOTTLE TP ONE (10:43)
== END 2020-08-10 10:35 | disposition home or self-care (01) ==
LOC: WOUND 10:34
PROVIDERS: ATTEND Surgery
DX: T81.89XD Other complications of procedures, not elsewhere classified, subsequent encounter (principal); Z87.891 Personal history of nicotine dependence; Y83.8 Other surgical procedures as the cause of abnormal reaction of the patient, or of later complication, without mention of misadventure at the time of the procedure
CPT/HCPCS: 97605

== ENCOUNTER 2020-08-14 09:29 | Outpatient (CLI) | payer BC, OTHER, SELFPAY | END 2020-08-14 09:30 | disposition home or self-care (01) | LOC: WOUND 09:29 | PROVIDERS: ATTEND Surgery | DX: T81.89XD Other complications of procedures, not elsewhere classified, subsequent encounter (principal); Z87.891 Personal history of nicotine dependence; Y83.8 Other surgical procedures as the cause of abnormal reaction of the patient, or of later complication, without mention of misadventure at the time of the procedure | CPT/HCPCS: 97605 ==

== ENCOUNTER 2020-08-19 12:40 | Outpatient (CLI) | payer BC, OTHER, SELFPAY | END 2020-08-19 12:41 | disposition home or self-care (01) | LOC: WOUND 12:40 | PROVIDERS: ATTEND Surgery | DX: T81.89XD Other complications of procedures, not elsewhere classified, subsequent encounter (principal); Z87.891 Personal history of nicotine dependence; Y83.8 Other surgical procedures as the cause of abnormal reaction of the patient, or of later complication, without mention of misadventure at the time of the procedure | CPT/HCPCS: 97605 ==

== ENCOUNTER 2020-08-24 10:59 | Outpatient (CLI) | payer BC, OTHER, SELFPAY | END 2020-08-24 11:00 | disposition home or self-care (01) | LOC: WOUND 10:59 | PROVIDERS: ATTEND Surgery | DX: T81.89XD Other complications of procedures, not elsewhere classified, subsequent encounter (principal); Z87.891 Personal history of nicotine dependence; Y83.8 Other surgical procedures as the cause of abnormal reaction of the patient, or of later complication, without mention of misadventure at the time of the procedure | CPT/HCPCS: 97605 ==

== ENCOUNTER 2020-09-29 19:53 | Observation (INO) | payer BC, SELFPAY ==
[2020-10-01] MEDS ORDERED: SODIUM CHLORIDE 0.9% 1000 ML 1,000 ML IV ONE (02:10)
--- NOTE | 2020-10-01 02:15 | Emergency Department Report ---
<CHAU SMITHALESIA Aguilera - Last Filed: 10/01/20 05:22> ED General Adult HPI - General Chief complaint: Dizziness Stated complaint: WEAKNESS DIZZINESS SHAKING SWEATING PUI?: No Time Seen by Provider: 10/01/20 02:01 - Related Data Previous Rx's Medication Instructions Recorded Last Taken Type Amoxicillin/Potassium Clav 1 each PO Q12H 10 Days #20 tablet 07/28/20 Unknown Rx [Augmentin 875-125 Tablet] Ketorolac [Toradol] 10 mg PO Q6H PRN #20 tablet 07/28/20 Unknown Rx Sennosides Tab [Senokot] 8.6 mg PO Q12HR PRN #20 tablet 07/28/20 Unknown Rx oxyCODONE /ACETAMINOPHEN [Percocet 1 tab PO Q6HR PRN #20 tablet 07/28/20 Unknown Rx 5/325] Allergies Allergy/AdvReac Type Severity Reaction Status Date / Time No Known Allergies Allergy Verified 09/30/20 18:37 ED Past Medical Hx - Medications Home Medications: Home Medications Medication Instructions Recorded Confirmed Last Taken Type Amoxicillin/Potassium Clav 1 each PO Q12H 10 Days #20 tablet 07/28/20 Unknown Rx [Augmentin 875-125 Tablet] Ketorolac [Toradol] 10 mg PO Q6H PRN #20 tablet 07/28/20 Unknown Rx Sennosides Tab [Senokot] 8.6 mg PO Q12HR PRN #20 tablet 07/28/20 Unknown Rx oxyCODONE /ACETAMINOPHEN [Percocet 1 tab PO Q6HR PRN #20 tablet 07/28/20 Unknown Rx 5/325] ED Course - Reevaluation(s) Reevaluation #1: I reviewed the findings and management of this patient in real-time and I have personally seen and examined this patient and participated in the decision making for this patient with the midlevel. Patient is a 59-year-old male who presents emergency room for near syncopal episode. Patient denies chest pain shortness of breath. n patient complains of dizziness and diaphoresis. I examined the patient. CV exam shows normal S1-S2. Patient's lung sounds are clear to auscultation. Patient abdominal exam is negative. Patient's neuro exam is unremarkable. I discussed all results with patient. I discussed plan of care with patient. Patient agrees with plan of care and admission. Patient to be admitted to the hospitalist service. 10/01/20 05:21 ED Disposition Clinical Impression: Acute kidney injury, Dehydration, Dizziness, Near syncope, Diaphoresis Disposition: ADMITTED INPATIENT Is pt being admited?: Yes Does the pt Need Aspirin: No Condition: Critical Time of Disposition: 05:20 <SINDY DELVALLE - Last Filed: 10/01/20 05:57> ED General Adult HPI - General Source: patient Mode of arrival: Ambulatory Limitations: No Limitations - History of Present Illness Initial comments: 59-year-old male patient presents to the emergency department with complaints of dizziness, lightheadedness, fatigue, blurred vision, and diaphoresis starting 4 days ago. Symptoms have been episodic in nature. Patient has been unable to identify any exacerbating or relieving factors. These episodes have been occurring approximately once per day since they began. No recent fall, trauma, or injury. Patient states he does not take any medications on a daily basis. No known history of heart problems. Denies headache, chest pain, shortness of breath, palpitations, syncope, seizure. Denies all other complaints at this time. ED Review of Systems ROS: Stated complaint: WEAKNESS DIZZINESS SHAKING SWEATING Other details as noted in HPI Other: GENERAL: Positive for fatigue. EYES: Positive for blurred vision. ENT: Negative for ear pain, difficulty hearing, sore throat, nasal congestion, epistaxis. CARDIOVASCULAR: Negative for chest pain, palpitations, lower extremity swelling. PULMONARY: Negative for cough, dyspnea, wheezing, orthopnea, cyanosis. GASTROINTESTINAL: Negative for abdominal pain, nausea, vomiting, diarrhea, constipation. MUSCULOSKELETAL: Negative for joint pain, joint swelling, myalgias, back pain, neck pain. NEUROLOGICAL: Positive for dizziness, lightheadedness. INTEGUMENTARY: Positive for diaphoresis. HEMATOLOGICAL: Negative for hemoptysis, hematemesis, hematochezia, hematuria. PSYCHIATRIC: Negative for hallucinations, suicidal ideation, homicidal ideation, anxiety, depression. ED Past Medical Hx - Past Medical History Previous Medical History?: Yes Hx Hypertension: No Hx Congestive Heart Failure: No Hx Diabetes: No Hx Asthma: No Hx COPD: No Hx HIV: No Additional medical history: Hemorrhoids, buttock abscess - Surgical History Past Surgical History?: No - Social History Smoking Status: Current Every Day Smoker Substance Use Type: None ED Physical Exam - General Limitations: No Limitations - Other Other exam information: General: Awake and alert. No acute distress. Head: Atraumatic, normocephalic. Eyes: EOMI. Pupils are equal and round, reactive to light, no nystagmus. Normal sclera and conjunctiva. ENT: Oral mucosa is moist. Normal pharyngeal exam. Neck: Supple. No lymphadenopathy. Pulmonary: No respiratory distress. Clear to auscultation bilaterally. Cardiac: Tachycardic. Pulses are palpable and equal bilaterally. No lower extremity cyanosis or edema. Skin: Warm and dry. No rashes. Abdomen: Soft, non-tender, non-protuberant. No guarding, rigidity, or rebound. Bowel sounds are normal. No organomegaly or masses noted. Back: Normal alignment. No CVA tenderness. Extremities: Symmetrical. Full range of motion intact. Neurological: Alert and oriented, appropriately interactive, no focal deficits. Psych: Cooperative. Appropriate mood and affect. Speech is evenly metered. Thoughts are logically construed. ED Course Vital Signs 09/29/20 09/29/20 20:13 20:21 Temperature 98.4 F Pulse Rate 107 H Respiratory 18 Rate Blood Pressure 153/89 O2 Sat by Pulse 98 Oximetry ED Medical Decision Making - EKG Data 10/01/20 02:13 EKG performed on September 30, 2020 at 18:47 shows sinus tachycardia with a ventricular rate of 106 bpm. Normal axis. Normal WA interval. Normal QT interval. Left atrial enlargement. Minimally peaked T waves noted to the anterior leads. No old EKG available for comparison. 10/01/20 02:15 - Medical Decision Making Differential diagnosis including but not limited to: acute coronary syndrome, cardiac arrhythmia, orthostatic hypotension, dehydration, electrolyte abnormality, hypoglycemia On reevaluation, patient remains stable. EKG shows sinus tachycardia without acute injury pattern. Initial and repeat troponin within normal limits. Labs significant for acute kidney injury with twofold increase in creatinine and significant increase in BUN since last ED visit 2 months earlier as well as hemoconcentration with a hemoglobin of 16.3. CPK minimally elevated. Presentation consistent with acute kidney injury attributable to dehydration. Given IV fluids. Case discussed with hospitalist, who agrees to admit. Patient expressed understanding and is agreeable to plan of care. Critical Care Time: Yes Critical care time in (mins) excluding proc time.: 34 Critical care attestation.: If time is entered above; I have spent that time in minutes in the direct care of this critically ill patient, excluding procedure time. Critical Care Time: 34 minutes ED Disposition Is pt being admited?: Yes Does the pt Need Aspirin: No Time of Disposition: 04:47
--- NOTE | 2020-10-01 02:40 | XRay Report ---
CHEST 1 VIEW 10/01/2020 2:28 AM INDICATION / CLINICAL INFORMATION: dizzy, diaphoretic, weak. COMPARISON: 09/30/2020 FINDINGS: SUPPORT DEVICES: None. HEART / MEDIASTINUM: No significant abnormality. LUNGS / PLEURA: No significant pulmonary or pleural abnormality. No pneumothorax. ADDITIONAL FINDINGS: No significant additional findings. IMPRESSION: 1. No acute findings. Signer Name: Marcus Corral MD Signed: 10/01/2020 2:35 AM Workstation Name: [id number]
--- NOTE | 2020-10-01 08:49 | History and Physical Report ---
History of Present Illness Date of examination: 10/01/20 Date of admission: 10/01/20 05:22 Chief complaint: Dizziness and weakness History of present illness: 59-year-old male patient presents to the emergency department with complaints of dizziness, lightheadedness, fatigue, blurred vision, and diaphoresis starting 4 days ago. Symptoms have been episodic in nature. Patient has been unable to identify any exacerbating or relieving factors. These episodes have been occurring approximately once per day since they began. No recent fall, trauma, or injury. Patient states he does not take any medications on a daily basis. No known history of heart problems. Denies headache, chest pain, shortness of breath, palpitations, syncope, seizure. Denies all other complaints at this time. At time of my evaluation patient is doing well no new complaints Denies nausea vomiting or abdominal pain Denies headache mild dizziness Denies syncope or near syncope No history of seizures Past History Past Medical History: No medical history Past Surgical History: No surgical history Social history: smoking Family history: no significant family history Medications and Allergies Allergies Allergy/AdvReac Type Severity Reaction Status Date / Time No Known Allergies Allergy Verified 09/30/20 18:37 Home Medications Medication Instructions Recorded Confirmed Last Taken Type Amoxicillin/Potassium Clav 1 each PO Q12H 10 Days #20 tablet 07/28/20 Unknown Rx [Augmentin 875-125 Tablet] Ketorolac [Toradol] 10 mg PO Q6H PRN #20 tablet 07/28/20 Unknown Rx Sennosides Tab [Senokot] 8.6 mg PO Q12HR PRN #20 tablet 07/28/20 Unknown Rx oxyCODONE /ACETAMINOPHEN [Percocet 1 tab PO Q6HR PRN #20 tablet 07/28/20 Unknown Rx 5/325] Review of Systems Constitutional: fatigue, weakness, no weight loss, no weight gain Ears, nose, mouth and throat: no nasal congestion, no nasal discharge Cardiovascular: no chest pain, no palpitations, no syncope Respiratory: no cough, no hemoptysis Gastrointestinal: no abdominal pain, no nausea, no vomiting Genitourinary Male: no dysuria, no hematuria Musculoskeletal: no myalgias, no arthritis Integumentary: no rash, no lesions Neurological: other (Dizziness), no syncope, no tremors Psychiatric: no anxiety, no depression Endocrine: no cold intolerance, no heat intolerance Hematologic/Lymphatic: no easy bruising, no easy bleeding Allergic/Immunologic: no urticaria, no allergic rhinitis Exam - Constitutional Vitals: Temp Pulse Resp BP Pulse Ox 98.4 F 107 H 18 122/66 98 09/29/20 20:21 09/29/20 20:13 09/29/20 20:13 10/01/20 07:16 10/01/20 07:16 General appearance: Present: mild distress, well-nourished, obese - EENT Eyes: Present: PERRL, EOM intact - Neck Neck: Present: supple, normal ROM - Respiratory Respiratory effort: normal Respiratory: bilateral: diminished, negative: rales, rhonchi, wheezing - Cardiovascular Rhythm: regular Heart Sounds: Present: S1 & S2 - Extremities Extremities: no ischemia, No edema - Abdominal General gastrointestinal: Present: soft, non-tender, non-distended, normal bowel sounds - Integumentary Integumentary: Present: clear, warm - Musculoskeletal Musculoskeletal: strength equal bilaterally, generalized weakness - Psychiatric Psychiatric: appropriate mood/affect, other (Dizziness) HEART Score - HEART Score Troponin: Troponin T < 0.010 ng/mL (0.00-0.029) 10/01/20 02:55 Results - Labs CBC & Chem 7: 10/01/20 09:02 Labs: Abnormal lab results 09/29/20 Range/Units 20:14 POC Glucose 111 H (70-105) mg/dL Assessment and Plan --Dizziness/near syncope; Probably vasovagal, check orthostatics Fall precautions, IV fluids Supportive care If no improvement CT head without contrast and possible MRI if needed --Acute kidney injury; due to vasomotor nephropathy Gentle hydration, monitor renal function, avoid nephrotoxins Nephrology evaluation if needed --Obesity; BMI 34.9; Patient advised diet modification, lifestyle changes, Exercise as tolerated and weight reduction medically stable --Ongoing tobacco use; Smoking cessation counseling done, advised nicotine patch as needed --DVT prophylaxis; SCDs Lovenox, ambulate as tolerated --Full CODE STATUS We will closely monitor patient and adjust the management as needed Plan of care reviewed with the patient and his nurse
[2020-10-01] MEDS ORDERED: SODIUM CHLORIDE 0.9% 1000 ML 1,000 ML IV SCH (09:00)
[2020-10-01 09:34] LABS: BUN/Creatinine Ratio 19; Blood Urea Nitrogen 21 mg/dL (9-20); Calcium 9.2 mg/dL (8.4-10.2); Hemolysis Index 6
[2020-10-01 09:44] VITALS: BP 154/75
--- NOTE | 2020-10-01 10:35 | Discharge Summary ---
Providers - Providers Date of Admission: 10/01/20 05:22 Date of discharge: 10/01/20 Attending physician: LISA PÉREZ Primary care physician: PLANNING FEEDER Hospitalization Reason for admission: Dizziness ,near syncope Condition: Stable Pertinent studies: Chest x-ray; no acute abnormality noted Hospital course: 59-year-old male patient was admitted through emergency room with severe dizziness and near syncope feeling Patient was initially evaluated in the ED noted to have acute kidney injury probably secondary to dehydration Orthostats were checked, patient was placed on fall precautions and gentle hydration, hypokalemia corrected per protocol Patient is also has ongoing tobacco use, smoking cessation counseling advised nicotine patch if needed Patient is mild obese mildly obese with BMI of 34.9, I strongly advised diet modification lifestyle changes exercise as tolerated and weight reduction when medically stable Patient verbalized understanding, today patient is comfortable no new complaints no new episodes of dizziness or near syncope events, tolerating oral nutrition and patient is ambulatory without support Patient is hemodynamically and clinically stable at discharge Again reiterated smoking cessation and nicotine patch as needed patient verbalized understanding Advised to see primary care physician in 3 to 5 days Advised to go to the nearest emergency room should he have worsening symptoms Stable at discharge. Discharge diagnosis: --Dizziness;Resolved --Acute kidney injury; vasomotor nephropathy, resolved Renal function back to normal --Hypokalemia; resolved --Obesity; BMI 34.9 Advised weight reduction, diet modification --Ongoing tobacco use; advised smoking cessation Nicotine patch as needed --Obesity; BMI 34.9 Advised weight reduction when medically stable --Full CODE STATUS. Patient's dizziness Completely resolved Patient is ambulatory and tolerating oral nutrition Hemodynamically and clinically stable at discharge Advised to drink plenty of oral fluids Check with primary care physician in 3 to 5 days Disposition: 01 HOME / SELF CARE / HOMELESS Final Discharge Diagnosis (Prints w/discharge instructions): Dizziness/resolved. Near syncope/CT head negative. Acute kidney injury/resolved. Hypokalemia/re solved. Obesity; BMI 34.5/advised weight reduction when stable. Ongoing tobacco use/smoking cessation advised Time spent for discharge: 35 min Core Measure Documentation - Palliative Care Palliative Care/ Comfort Measures: Not Applicable - Core Measures Any of the following diagnoses?: none Exam - Constitutional Vitals: Temp Pulse Resp BP Pulse Ox 98.5 F 89 18 154/75 97 10/01/20 09:44 10/01/20 09:44 10/01/20 09:44 10/01/20 09:44 10/01/20 09:44 General appearance: Present: no acute distress, well-nourished - EENT Eyes: Present: PERRL, EOM intact - Neck Neck: Present: supple, normal ROM - Respiratory Respiratory effort: normal Respiratory: bilateral: diminished, negative: rales, rhonchi, wheezing - Cardiovascular Rhythm: regular Heart Sounds: Present: S1 & S2 - Extremities Extremities: no ischemia, No edema - Abdominal General gastrointestinal: Present: soft, non-tender, non-distended, normal bowel sounds - Integumentary Integumentary: Present: clear, warm - Musculoskeletal Musculoskeletal: strength equal bilaterally, generalized weakness - Psychiatric Psychiatric: appropriate mood/affect, cooperative - Neurologic Neurologic: moves all extremities Plan Activity: no restrictions, fall precautions Diet: other (Cardiac diet) Additional Instructions: Advised to drink plenty oral fluids. If you have worsening symptoms check with primary care physician or go to the emergency room as needed. Advised 2 days rest patient reports he is already off[on 10/02/20 and 10/03/20]. Fall precautions. Smoking cessation advised, nicotine patch as needed Follow up with: PRIMARY CARE, [Primary Care Provider] - 3-5 Days
== END 2020-10-01 12:00 | disposition home or self-care (01) ==
LOC: ED 19:53 → 3A 10-01 05:22
PROVIDERS: ADMIT Internal Medicine Geriatric Medicine; ATTEND Internal Medicine
DX: N17.9 Acute kidney failure, unspecified (principal); E86.0 Dehydration; K64.9 Unspecified hemorrhoids; R55 Syncope and collapse; R42 Dizziness and giddiness; H53.8 Other visual disturbances; R53.1 Weakness; R61 Generalized hyperhidrosis; F17.210 Nicotine dependence, cigarettes, uncomplicated; E87.6 Hypokalemia; E66.9 Obesity, unspecified; Z68.34 Body mass index [BMI] 34.0-34.9, adult
CPT/HCPCS: 36415; 71045; 80048; 82962; 83735; 84484; 96360; 99291; G0378

== ENCOUNTER → 2020-09-30 | Emergency (ER) | payer BC ==
[~2020-09-30] MED LIST: SODIUM CHLORIDE 0.9% 1000 ML 1,000 ML ONE
[2020-09-30 18:42] VITALS: BP 143/79
--- NOTE | 2020-09-30 21:00 | Event Note ---
ED Screening Note ED Screening Note: chills, fatigue, weakness, sweats that began two days ago no fever only feel the symptoms with standing +lightheaded/dizziness +nausea no CP no SOB no v/d PMHx possible HTN but has not been medicated got the COVID vaccine +tobacco 1/2 ppd This initial assessment/diagnostic orders/clinical plan/treatment(s) is/are subject to change based on patients health status, clinical progression and re- assessment by fellow clinical providers in the ED. Further treatment and workup at subsequent clinical providers discretion. Patient/guardian urged not to elope from the ED as their condition may be serious if not clinically assessed and managed. Initial orders include: labs, XR
[2020-09-30 21:20] LABS: Basophils % (Auto) 0.2 % (0.0-1.8); Eosinophils # (Auto) 0.1 K/mm3 (0.0-0.4); Eosinophils % (Auto) 0.7 % (0.0-4.3); Hematocrit 47.7 % (35.5-45.6); Hemoglobin 16.3 gm/dl (11.8-15.2); Lymphocytes # (Auto) 1.2 K/mm3 (1.2-5.4); Lymphocytes % (Auto) 14.4 % (13.4-35.0); Mean Corpuscular HGB Conc 34 % (32-34); Mean Corpuscular Volume 92 fl (84-94); Monocytes % (Auto) 11.7 % (0.0-7.3); Platelet Count 195 K/mm3 (140-440); Red Blood Count 5.18 M/mm3 (3.65-5.03); Red Cell Distribution Width 16.1 % (13.2-15.2)
--- NOTE | 2020-09-30 21:34 | XRay Report ---
CHEST 2 VIEWS INDICATION / CLINICAL INFORMATION: lightheaded, weakness. COMPARISON: None available. FINDINGS: SUPPORT DEVICES: None. HEART / MEDIASTINUM: No significant abnormality. LUNGS / PLEURA: No significant pulmonary or pleural abnormality. No pneumothorax. ADDITIONAL FINDINGS: No significant additional findings. IMPRESSION: 1. No acute findings. Signer Name: Heriberto Goodwin DO Signed: 09/30/2020 9:30 PM Workstation Name: [id number]
[2020-09-30 22:18] LABS: Alanine Aminotransferase 12 units/L (7-56); Albumin 4.1 g/dL (3.9-5); BUN/Creatinine Ratio 13; Blood Urea Nitrogen 21 mg/dL (9-20); Calcium 10.2 mg/dL (8.4-10.2); Hemolysis Index 20
--- NOTE | 2020-10-01 10:09 | Electrocardiograph Report ---
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 NSSTTW'S No previous ECG available for comparison Electronically Signed On 10-01-2020 10:08:57 EDT by Suraj Boggs
== END ==
LOC: ED 17:42
DX: R53.83 Other fatigue (principal); R53.1 Weakness; Z53.21 Procedure and treatment not carried out due to patient leaving prior to being seen by health care provider
CPT/HCPCS: 36415; 71046; 80053; 82550; 83735; 84484; 85025; 93005; J7030

== ENCOUNTER 2021-10-11 12:58 | Outpatient (CLI) | payer BC ==
[2021-10-11] MEDS ORDERED: LIDOCAINE (4%) 40 MG/ML TOPICAL SOLN 50 ML BOTTLE TP ONE (13:04)
[2021-10-11] MEDS ORDERED: SILVER NITRATE APPLICATOR 1 EA TP ONE (13:33)
== END 2021-10-11 12:59 | disposition home or self-care (01) ==
LOC: WOUND 12:58
PROVIDERS: ATTEND Surgery
DX: T81.89XD Other complications of procedures, not elsewhere classified, subsequent encounter (principal); S31.829D Unspecified open wound of left buttock, subsequent encounter; Z87.891 Personal history of nicotine dependence; Y83.8 Other surgical procedures as the cause of abnormal reaction of the patient, or of later complication, without mention of misadventure at the time of the procedure; X58.XXXD Exposure to other specified factors, subsequent encounter
CPT/HCPCS: 17250; G0463; 99203; 99213